=== PATIENT | female | born 1935 | race Caucasian/White ===

== ENCOUNTER 2018-01-28 08:28 | Inpatient (IN) ==
[2018-01-28] MEDS ORDERED: Ipratropium/Albuterol Neb 3 ML IH ONE (09:08)
[2018-01-28] MEDS ORDERED: Isovue-370 500 ML INFUS..BTL IV ONE (09:10)
--- NOTE | 2018-01-28 09:10 | Emergency Department Note ---
Disposition Clinical Impression: GI bleed, Episode of syncope, COPD exacerbation Disposition: Admitted As Inpatient Referrals: Colin Oden MD [Primary Care Provider] - Forms: ED Satisfaction Letter General Adult HPI - General Chief complaint: ED Syncope Stated complaint: syncope Time Seen by Provider: 01/28/18 08:42 Source: patient Limitations: no limitations - History of Present Illness Pain Scale: 0 - Related Data Home Medications Medication Instructions Recorded Confirmed Alendronate Sodium 70 mg PO QWEEK 12/10/14 12/10/14 Multivitamin/Iron/Folic Acid 1 each PO QPM 12/10/14 12/10/14 [Centrum Complete Multivit Tab] Allopurinol [Zyloprim 300 MG] 300 mg PO DAILY 01/28/18 Lisinopril [Zestril] 20 mg PO DAILY 01/28/18 Montelukast [Singulair] 10 mg PO DAILY 01/28/18 Tizanidine HCl 2 mg PO BID PRN 01/28/18 Tramadol HCl [Ultram] 50 mg PO BID PRN 01/28/18 Umeclidinium [place] [Incruse 1 puff IH DAILY 01/28/18 Ellipta] Previous Rx's Medication Instructions Recorded Aspirin 81 mg PO QAM tab.chew 12/11/14 Allergies Allergy/AdvReac Type Severity Reaction Status Date / Time ibuprofen [From Motrin] Allergy Rash Verified 01/28/18 08:40 Penicillins Allergy Rash Verified 01/28/18 08:40 Past Medical History - Past Medical History Medical history: Reports: COPD, hypertension, renal disease, other Surgical history: Reports: other (heart cath 6 years ago) Psychiatric history: Reports: no psych history STATISTICAL ENGINEER history: Reports: no STATISTICAL ENGINEER history - Social History Smoking Status: Current every day smoker Smokeless Tobacco Status: No Alcohol use: Reports: occasionally Drug use: Reports: none Physical Exam - General Limitations: no limitations General appearance: alert, in no apparent distress Course Vital Signs Temperature 98.4 F 01/28/18 08:40 Pulse Rate 129 01/28/18 08:40 Respiratory Rate 20 01/28/18 08:40 Blood Pressure 107/70 01/28/18 08:40 O2 Sat by Pulse Oximetry 92 01/28/18 08:40 Temperature 98.9 F 01/28/18 11:27 Pulse Rate 111 01/28/18 11:27 Respiratory Rate 24 11/04/18 11:27 Blood Pressure 135/75 01/28/18 11:27 O2 Sat by Pulse Oximetry 100 01/28/18 11:27 Oxygen Delivery Oxygen Delivery Nasal Cannula Medical Decision Making - Lab Data Result diagrams: 01/28/18 09:32 01/28/18 09:32 Lab Results 01/28/18 01/28/18 01/28/18 Range/Units 09:32 09:32 09:32 WBC 11.3 H (4.3-11.1) K/mcL RBC 3.28 L (3.82-4.97) M/mcL Hgb 10.9 L (11.5-15.4) g/dL Hct 33.3 L (35.3-44.9) % MCV 101.5 H (83.0-100.0) fL MCH 33.2 (28.0-33.3) pg MCHC 32.7 (31.6-35.5) g/dL RDW 14.3 (11.5-14.5) % Plt Count 171 (140-400) K/mcL MPV 11.1 (9.4-12.4) fL Immature Gran % 0.4 (0-4) % Seg Neutrophils % 82.9 % Lymphocytes % 12.0 % Monocytes % 4.3 % Eosinophils % 0.0 % Basophils % 0.4 % Neutrophils # 9.4 H (1.6-8.9) K/mcL Lymphocytes # 1.4 (0.6-4.6) K/mcL Monocytes # 0.5 (0.0-1.3) K/mcL Eosinophils # 0.0 (0.0-0.6) K/mcL Basophils # 0.0 (0.0-0.2) K/mcL PT (9.4-12.1) Seconds INR APTT (26.0-36.0) Seconds Sodium (136-145) mEq/L Potassium (3.5-5.1) mEq/L Chloride (98-107) mEq/L Carbon Dioxide (23-29) mEq/L BUN (8-23) mg/dL Creatinine (0.60-1.20) mg/dL Est GFR ( Amer) (> 60) Est GFR (Non-Af Amer) (> 60) BUN/Creatinine Ratio (6-26) Glucose (70-105) mg/dL Calculated Osmolality (280-300) Lactic Acid 1.4 (0.5-2.2) mmol/L Calcium (8.6-10.3) mg/dL Creatine Kinase (30-223) Units/L Troponin I (< 0.04) ng/mL Urine Color (Yellow) Urine Clarity (Clear) Urine pH (5.0-8.0) pH Units Ur Specific [place] (1.010-1.025) Urine Protein (Neg-Trace) mg/dL Urine Glucose (UA) (Normal) mg/dL Urine Ketones (Negative) mg/dL Urine Blood (Negative) Urine Nitrite (Negative) Urine Bilirubin (Negative) Urine Urobilinogen (Normal) mg/dL Ur Leukocyte Esterase (Negative) Urine Microscopic RBC (0-3) per hpf Urine Microscopic WBC (0-3) per hpf Ur Squamous Epith Cells (None-Few) per lpf Urine Bacteria (None-Few) per hpf Hyaline Casts (None-Few) per lpf Ur Culture Indicated? (NO) Stool Occult Bld Scrn (Negative) Blood Type O POSITIVE Antibody Screen NEGATIVE 01/28/18 01/28/18 01/28/18 Range/Units 09:32 09:32 10:07 WBC (4.3-11.1) K/mcL RBC (3.82-4.97) M/mcL Hgb (11.5-15.4) g/dL Hct (35.3-44.9) % MCV (83.0-100.0) fL MCH (28.0-33.3) pg MCHC (31.6-35.5) g/dL RDW (11.5-14.5) % Plt Count (140-400) K/mcL MPV (9.4-12.4) fL Immature Gran % (0-4) % Seg Neutrophils % % Lymphocytes % % Monocytes % % Eosinophils % % Basophils % % Neutrophils # (1.6-8.9) K/mcL Lymphocytes # (0.6-4.6) K/mcL Monocytes # (0.0-1.3) K/mcL Eosinophils # (0.0-0.6) K/mcL Basophils # (0.0-0.2) K/mcL PT 12.6 H (9.4-12.1) Seconds INR 1.1 APTT 28.6 (26.0-36.0) Seconds Sodium 140 (136-145) mEq/L Potassium 4.8 (3.5-5.1) mEq/L Chloride 107 (98-107) mEq/L Carbon Dioxide 26 (23-29) mEq/L BUN 58 H (8-23) mg/dL Creatinine 0.90 (0.60-1.20) mg/dL Est GFR ( Amer) > 60 (> 60) Est GFR (Non-Af Amer) 60 (> 60) BUN/Creatinine Ratio 64 H (6-26) Glucose 117 H (70-105) mg/dL Calculated Osmolality 307 H (280-300) Lactic Acid (0.5-2.2) mmol/L Calcium 9.7 (8.6-10.3) mg/dL Creatine Kinase 49 (30-223) Units/L Troponin I 0.03 (< 0.04) ng/mL Urine Color (Yellow) Urine Clarity (Clear) Urine pH (5.0-8.0) pH Units Ur Specific [place] (1.010-1.025) Urine Protein (Neg-Trace) mg/dL Urine Glucose (UA) (Normal) mg/dL Urine Ketones (Negative) mg/dL Urine Blood (Negative) Urine Nitrite (Negative) Urine Bilirubin (Negative) Urine Urobilinogen (Normal) mg/dL Ur Leukocyte Esterase (Negative) Urine Microscopic RBC (0-3) per hpf Urine Microscopic WBC (0-3) per hpf Ur Squamous Epith Cells (None-Few) per lpf Urine Bacteria (None-Few) per hpf Hyaline Casts (None-Few) per lpf Ur Culture Indicated? (NO) Stool Occult Bld Scrn Positive A (Negative) Blood Type Antibody Screen 01/28/18 Range/Units 10:45 WBC (4.3-11.1) K/mcL RBC (3.82-4.97) M/mcL Hgb (11.5-15.4) g/dL Hct (35.3-44.9) % MCV (83.0-100.0) fL MCH (28.0-33.3) pg MCHC (31.6-35.5) g/dL RDW (11.5-14.5) % Plt Count (140-400) K/mcL MPV (9.4-12.4) fL Immature Gran % (0-4) % Seg Neutrophils % % Lymphocytes % % Monocytes % % Eosinophils % % Basophils % % Neutrophils # (1.6-8.9) K/mcL Lymphocytes # (0.6-4.6) K/mcL Monocytes # (0.0-1.3) K/mcL Eosinophils # (0.0-0.6) K/mcL Basophils # (0.0-0.2) K/mcL PT (9.4-12.1) Seconds INR APTT (26.0-36.0) Seconds Sodium (136-145) mEq/L Potassium (3.5-5.1) mEq/L Chloride (98-107) mEq/L Carbon Dioxide (23-29) mEq/L BUN (8-23) mg/dL Creatinine (0.60-1.20) mg/dL Est GFR ( Amer) (> 60) Est GFR (Non-Af Amer) (> 60) BUN/Creatinine Ratio (6-26) Glucose (70-105) mg/dL Calculated Osmolality (280-300) Lactic Acid (0.5-2.2) mmol/L Calcium (8.6-10.3) mg/dL Creatine Kinase (30-223) Units/L Troponin I (< 0.04) ng/mL Urine Color Yellow (Yellow) Urine Clarity Clear (Clear) Urine pH 6.0 (5.0-8.0) pH Units Ur Specific [place] 1.018 (1.010-1.025) Urine Protein Negative (Neg-Trace) mg/dL Urine Glucose (UA) Normal (Normal) mg/dL Urine Ketones Negative (Negative) mg/dL Urine Blood Large H (Negative) Urine Nitrite Negative (Negative) Urine Bilirubin Negative (Negative) Urine Urobilinogen Normal (Normal) mg/dL Ur Leukocyte Esterase Trace H (Negative) Urine Microscopic RBC 0-3 (0-3) per hpf Urine Microscopic WBC 0-3 (0-3) per hpf Ur Squamous Epith Cells Many H (None-Few) per lpf Urine Bacteria Few (None-Few) per hpf Hyaline Casts None Seen (None-Few) per lpf Ur Culture Indicated? NO. A (NO) Stool Occult Bld Scrn (Negative) Blood Type Antibody Screen Critical Care Time Critical Care Time: Yes Total Critical Care Time: 30 Attestation: Critical care performed: Time is exclusive of separately billable procedures. Time includes: direct roberto carlos ent care, patient reassessment, coordination of patient care, interpretation of data (laboratory data, radiology data, and respiratory data), review of patient's medical records, medical consultation and documentation of patient care. Procedures included in critical care time: Procedures excluded from critical care time: Attestation Statement - Attestation Attestation: I examined this patient and my medical decision-making was reviewed with the Resident Physician. I agree with the documented findings, disposition and treatment plan as described except to the extent set forth below. Patient to the ED with a chief complaint of a syncopal episode last night. In her bedroom. Hit her head. She is also got some shortness of breath. In dark tarry stools. She is mildly tachypneic on exam with diffuse rhonchi. Plan. Cardiac workup. Head CT. Likely admission. Patient is Hemoccult positive. Hemoglobin 10. Patient is given IV Protonix. We have consulted with endoscopy. Patient is admitted.
[2018-01-28] MEDS ORDERED: methylPREDNISolone 125 MG/2 ML VIAL IVP ONE (09:13)
--- NOTE | 2018-01-28 09:20 | Emergency Department Note ---
Disposition Clinical Impression: COPD exacerbation GI bleed Qualifiers: GI bleed type/associated pathology: melena Qualified Code(s): K92.1 - Melena Episode of syncope Qualifiers: Syncope type: unspecified Qualified Code(s): R55 - Syncope and collapse Disposition: Admitted As Inpatient Condition: Fair Syncope HPI - General Chief Complaint: ED Syncope Stated Complaint: syncope Time Seen by Provider: 01/28/18 08:42 Source: patient Mode of arrival: private vehicle Limitations: no limitations Nursing Notes Reviewed: Yes Vital Signs Reviewed: Yes - History of Present Illness HPI Narrative: 82-year-old female history of hypertension, COPD who presents to the ER with complaint of syncope, shortness of breath and melena. Reports 5 days of cough. States that last night she used the bathroom and then whenever she got up and was walking back to her bed that she lost consciousness. She had no symptoms prior. She woke up on the ground and called down the hallway into her recliner. States she had a syncopal episode many many years ago. Family brought her in this morning. Denies prior history of CAD, DVT or PE. No oxygen dependency for her COPD. She does report dark stool starting last night. She is on 81 mg of aspirin daily. No prior history of colonoscopy. No other complaints. Pt Subjective Complaint: loss of consciousness Onset (ago): hour(s) Duration: other Prodromal Symptoms: none Witnessed: no Context: during exertion Injuries Sustained Associated with Event: none Current Symptoms: back to baseline History: previous syncopal episode Treatments prior to arrival: none - Related Data Home Medications Medication Instructions Recorded Confirmed Alendronate Sodium 70 mg PO QWEEK 12/10/14 12/10/14 Multivitamin/Iron/Folic Acid 1 each PO QPM 12/10/14 12/10/14 [Centrum Complete Multivit Tab] Allopurinol [Zyloprim 300 MG] 300 mg PO DAILY 01/28/18 Lisinopril [Zestril] 20 mg PO DAILY 01/28/18 Montelukast [Singulair] 10 mg PO DAILY 01/28/18 Tizanidine HCl 2 mg PO BID PRN 01/28/18 Tramadol HCl [Ultram] 50 mg PO BID PRN 01/28/18 Umeclidinium [place] [Incruse 1 puff IH DAILY 01/28/18 Ellipta] Previous Rx's Medication Instructions Recorded Aspirin 81 mg PO QAM tab.chew 12/11/14 Allergies Allergy/AdvReac Type Severity Reaction Status Date / Time ibuprofen [From Motrin] Allergy Rash Verified 01/28/18 08:40 Penicillins Allergy Rash Verified 01/28/18 08:40 All systems ED: reviewed and negative except as stated. Constitutional: Reports: fever (subjective) Cardiovascular: Denies: chest pain Respiratory: Reports: cough, dyspnea Gastrointestinal: Reports: melena. Denies: abdominal pain, nausea, vomiting, diarrhea Genitourinary: Denies: dysuria, hematuria Neurological: Denies: headache Past Medical History - Past Medical History Attestation: Yes The following information was validated with the patient. Source: patient, old records reviewed Medical history: Reports: COPD, hypertension, renal disease, other Surgical history: Reports: other (heart cath 6 years ago) Psychiatric history: Reports: no psych history FAMILY AND CONSUMER SCIENCES TEACHER history: Reports: no FAMILY AND CONSUMER SCIENCES TEACHER history - Social History Smoking Status: Current every day smoker Smokeless Tobacco Status: No Alcohol use: Reports: occasionally Drug use: Reports: none Physical Exam - General Limitations: no limitations General appearance: alert, in no apparent distress - Head Head exam: atraumatic, normocephalic, normal inspection - Eye Eye exam: Present: normal appearance, PERRL, EOMI - ENT ENT exam: normal exam - Neck Neck exam: Present: normal inspection - Chest Chest inspection: Present: normal inspection, symmetric chest wall rise - Respiratory Respiratory exam: Present: wheezes - Cardiovascular Cardiovascular exam: Present: normal rhythm, tachycardia, normal heart sounds - Abdominal Exam Abdominal exam: Present: soft, Non-Tender. Absent: tenderness, distention, rigidity - Extremities Exam Extremities exam: Present: normal inspection, full ROM - Expanded Upper Extremity Exam Shoulder exam: Present: normal inspection, full ROM Arm exam: Present: normal inspection, full ROM Elbow exam: Present: normal inspection, full ROM Forearm/Wrist exam: Present: normal inspection, full ROM Hand exam: Present: normal inspection, full ROM - Expanded Lower Extremity Exam Hip/Pelvis exam: Present: normal inspection, full ROM Upper leg exam: Present: normal inspection, full ROM Knee exam: Present: normal inspection, full ROM Lower leg exam: Present: normal inspection, full ROM Ankle exam: Present: normal inspection, full ROM Foot/toe exam: Present: normal inspection, full ROM Neurovascular/Tendon exam: Absent: motor deficit, sensory deficit - Neurological Exam Neurological exam: Present: alert, CN II-XII intact. Absent: motor sensory deficit - Expanded Neurological Exam Speech: Present: fluid speech Cranial nerves: EOM function (II, III, IV, ): Normal, facial sensation (V): Normal, spinal accessory function (XI): Normal, tongue deviation (XII): Normal Motor strength - LUE: 5/5 Motor strength - RUE: 5/5 Motor strength - LLE: 5/5 Motor strength - RLE: 5/5 Sensory exam upper extremity: light touch: Normal Sensory exam lower extremity: light touch: Normal Coma Scale Eye Opening: Spontaneous Coma Scale Motor Response: Obeys Commands Coma Scale Verbal Response: Oriented Coma Scale Total: 15 - Skin Skin exam: Present: warm, dry Course Course Narrative: Patient seen and examined. Vital signs reviewed. She is noted to be tachycardic here as well as tachypneic. Plan for EKG, chest x-ray, labs including troponin and stool occult blood. Also obtain CT imaging given her fall and unknown trauma as well as CT imaging for evaluation of pulmonary embolism in the setting of syncope and tachycardia. Patient ordered DuoNeb treatments and Solu-Medrol. - Reevaluation(s) Reevaluation #1: Vital signs have improved. Discussed workup with the patient. Agreeable with admission. - Consultations Consultation #1: I discussed this patient with the on-call endoscopist Dr. Streeter. Discussed the patient's history as well as vital signs, labs and current interventions. Bleeding felt to be from upper GI source given elevated BUN as well as melena. Reports that they can bowel prep her today and plan to scope tomorrow. Vital Signs Temperature 98.4 F 01/28/18 08:40 Pulse Rate 129 01/28/18 08:40 Respiratory Rate 20 01/28/18 08:40 Blood Pressure 107/70 01/28/18 08:40 O2 Sat by Pulse Oximetry 92 01/28/18 08:40 Temperature 98.9 F 01/28/18 11:27 Pulse Rate 111 01/28/18 11:27 Respiratory Rate 24 01/28/18 11:27 Blood Pressure 135/75 01/28/18 11:27 O2 Sat by Pulse Oximetry 100 01/28/18 11:27 Oxygen Delivery Oxygen Delivery Nasal Cannula Syncope - [facility] Narrative Medical decision making narrative: 82-year-old female presenting with shortness of breath, melena and a syncopal episode. She has diffuse wheezing on exam suggestive of COPD exacerbation. She was noted to be tachycardic at presentation which has improved with IV fluids and treatment of her COPD. Her blood pressure has been rather responsive to IV fluid resuscitation. CT imaging is grossly unremarkable for acute findings of intracranial or pulmonary pathology. She is noted to have anemia today without any recent comparison studies with Hemoccult-positive findings. Labs suggest upper GI bleed with elevated BUN. This case was discussed with the on-call endoscopist to plans for intervention tomorrow with upper and lower scopes. Patient given Protonix bolus and placed on drip. Patient is admitted to the hospital service for further management. - Lab Data Lab results reviewed: Yes I reviewed the patient's lab results. Result diagrams: 01/28/18 09:32 01/28/18 09:32 Lab Results 01/28/18 01/28/18 01/28/18 Range/Units 09:32 09:32 09:32 WBC 11.3 H (4.3-11.1) K/mcL RBC 3.28 L (3.82-4.97) M/mcL Hgb 10.9 L (11.5-15.4) g/dL Hct 33.3 L (35.3-44.9) % MCV 101.5 H (83.0-100.0) fL MCH 33.2 (28.0-33.3) pg MCHC 32.7 (31.6-35.5) g/dL RDW 14.3 (11.5-14.5) % Plt Count 171 (140-400) K/mcL MPV 11.1 (9.4-12.4) fL Immature Gran % 0.4 (0-4) % Seg Neutrophils % 82.9 % Lymphocytes % 12.0 % Monocytes % 4.3 % Eosinophils % 0.0 % Basophils % 0.4 % Neutrophils # 9.4 H (1.6-8.9) K/mcL Lymphocytes # 1.4 (0.6-4.6) K/mcL Monocytes # 0.5 (0.0-1.3) K/mcL Eosinophils # 0.0 (0.0-0.6) K/mcL Basophils # 0.0 (0.0-0.2) K/mcL PT (9.4-12.1) Seconds INR APTT (26.0-36.0) Seconds Sodium (136-145) mEq/L Potassium (3.5-5.1) mEq/L Chloride (98-107) mEq/L Carbon Dioxide (23-29) mEq/L BUN (8-23) mg/dL Creatinine (0.60-1.20) mg/dL Est GFR ( Amer) (> 60) Est GFR (Non-Af Amer) (> 60) BUN/Creatinine Ratio (6-26) Glucose (70-105) mg/dL Calculated Osmolality (280-300) Lactic Acid 1.4 (0.5-2.2) mmol/L Calcium (8.6-10.3) mg/dL Creatine Kinase (30-223) Units/L Troponin I (< 0.04) ng/mL Urine Color (Yellow) Urine Clarity (Clear) Urine pH (5.0-8.0) pH Units Ur Specific [place] (1.010-1.025) Urine Protein (Neg-Trace) mg/dL Urine Glucose (UA) (Normal) mg/dL Urine Ketones (Negative) mg/dL Urine Blood (Negative) Urine Nitrite (Negative) Urine Bilirubin (Negative) Urine Urobilinogen (Normal) mg/dL Ur Leukocyte Esterase (Negative) Urine Microscopic RBC (0-3) per hpf Urine Microscopic WBC (0-3) per hpf Ur Squamous Epith Cells (None-Few) per lpf Urine Bacteria (None-Few) per hpf Hyaline Casts (None-Few) per lpf Ur Culture Indicated? (NO) Stool Occult Bld Scrn (Negative) Blood Type O POSITIVE Antibody Screen NEGATIVE 01/28/18 01/28/18 01/28/18 Range/Units 09:32 09:32 10:07 WBC (4.3-11.1) K/mcL RBC (3.82-4.97) M/mcL Hgb (11.5-15.4) g/dL Hct (35.3-44.9) % MCV (83.0-100.0) fL MCH (28.0-33.3) pg MCHC (31.6-35.5) g/dL RDW (11.5-14.5) % Plt Count (140-400) K/mcL MPV (9.4-12.4) fL Immature Gran % (0-4) % Seg Neutrophils % % Lymphocytes % % Monocytes % % Eosinophils % % Basophils % % Neutrophils # (1.6-8.9) K/mcL Lymphocytes # (0.6-4.6) K/mcL Monocytes # (0.0-1.3) K/mcL Eosinophils # (0.0-0.6) K/mcL Basophils # (0.0-0.2) K/mcL PT 12.6 H (9.4-12.1) Seconds INR 1.1 APTT 28.6 (26.0-36.0) Seconds Sodium 140 (136-145) mEq/L Potassium 4.8 (3.5-5.1) mEq/L Chloride 107 (98-107) mEq/L Carbon Dioxide 26 (23-29) mEq/L BUN 58 H (8-23) mg/dL Creatinine 0.90 (0.60-1.20) mg/dL Est GFR ( Amer) > 60 (> 60) Est GFR (Non-Af Amer) 60 (> 60) BUN/Creatinine Ratio 64 H (6-26) Glucose 117 H (70-105) mg/dL Calculated Osmolality 307 H (280-300) Lactic Acid (0.5-2.2) mmol/L Calcium 9.7 (8.6-10.3) mg/dL Creatine Kinase 49 (30-223) Units/L Troponin I 0.03 (< 0.04) ng/mL Urine Color (Yellow) Urine Clarity (Clear) Urine pH (5.0-8.0) pH Units Ur Specific [place] (1.010-1.025) Urine Protein (Neg-Trace) mg/dL Urine Glucose (UA) (Normal) mg/dL Urine Ketones (Negative) mg/dL Urine Blood (Negative) Urine Nitrite (Negative) Urine Bilirubin (Negative) Urine Urobilinogen (Normal) mg/dL Ur Leukocyte Esterase (Negative) Urine Microscopic RBC (0-3) per hpf Urine Microscopic WBC (0-3) per hpf Ur Squamous Epith Cells (None-Few) per lpf Urine Bacteria (None-Few) per hpf Hyaline Casts (None-Few) per lpf Ur Culture Indicated? (NO) Stool Occult Bld Scrn Positive A (Negative) Blood Type Antibody Screen 01/28/18 Range/Units 10:45 WBC (4.3-11.1) K/mcL RBC (3.82-4.97) M/mcL Hgb (11.5-15.4) g/dL Hct (35.3-44.9) % MCV (83.0-100.0) fL MCH (28.0-33.3) pg MCHC (31.6-35.5) g/dL RDW (11.5-14.5) % Plt Count (140-400) K/mcL MPV (9.4-12.4) fL Immature Gran % (0-4) % Seg Neutrophils % % Lymphocytes % % Monocytes % % Eosinophils % % Basophils % % Neutrophils # (1.6-8.9) K/mcL Lymphocytes # (0.6-4.6) K/mcL Monocytes # (0.0-1.3) K/mcL Eosinophils # (0.0-0.6) K/mcL Basophils # (0.0-0.2) K/mcL PT (9.4-12.1) Seconds INR APTT (26.0-36.0) Seconds Sodium (136-145) mEq/L Potassium (3.5-5.1) mEq/L Chloride (98-107) mEq/L Carbon Dioxide (23-29) mEq/L BUN (8-23) mg/dL Creatinine (0.60-1.20) mg/dL Est GFR ( Amer) (> 60) Est GFR (Non-Af Amer) (> 60) BUN/Creatinine Ratio (6-26) Glucose (70-105) mg/dL Calculated Osmolality (280-300) Lactic Acid (0.5-2.2) mmol/L Calcium (8.6-10.3) mg/dL Creatine Kinase (30-223) Units/L Troponin I (< 0.04) ng/mL Urine Color Yellow (Yellow) Urine Clarity Clear (Clear) Urine pH 6.0 (5.0-8.0) pH Units Ur Specific [place] 1.018 (1.010-1.025) Urine Protein Negative (Neg-Trace) mg/dL Urine Glucose (UA) Normal (Normal) mg/dL Urine Ketones Negative (Negative) mg/dL Urine Blood Large H (Negative) Urine Nitrite Negative (Negative) Urine Bilirubin Negative (Negative) Urine Urobilinogen Normal (Normal) mg/dL Ur Leukocyte Esterase Trace H (Negative) Urine Microscopic RBC 0-3 (0-3) per hpf Urine Microscopic WBC 0-3 (0-3) per hpf Ur Squamous Epith Cells Many H (None-Few) per lpf Urine Bacteria Few (None-Few) per hpf Hyaline Casts None Seen (None-Few) per lpf Ur Culture Indicated? NO. A (NO) Stool Occult Bld Scrn (Negative) Blood Type Antibody Screen - Radiology Data Radiology results reviewed: Yes I reviewed the patient's radiology results. Chest X-Ray 01/28/18 08:44 IMPRESSION: No acute cardiopulmonary disease. D/ / Guillermo Guthrie MD / Guillermo Guthrie MD Interpreting Provider: Guillermo Guthrie MD Head CT 01/28/18 09:08 IMPRESSION: No acute intracranial abnormality. Paranasal sinus disease with fluid in left maxillary sinus. Correlation for acute sinusitis is recommended. D/ / Kamilah Molina Cha, MD / Kamilah Molina Cha, MD Interpreting Provider: Kamilah Molina Cha, MD Chest CTA 01/28/18 09:10 IMPRESSION: No acute pulmonary embolus is appreciated. 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 The lungs demonstrate bronchial wall thickening and mucous plugging. D/ / 01/28/2018 11:37:32 Aaron Vivas MD / ebeileen Interpreting Provider: Aaron Vivas MD Hip X-Ray 01/28/18 10:08 IMPRESSION: No acute osseous abnormality. D/ / Ankur Bass MD / Ankur Bass MD Interpreting Provider: Ankur Bass MD - EKG Data EKG attestation: Yes I reviewed and interpreted this EKG. EKG results narrative: EKG demonstrates sinus tachycardia with a rate of 115 with PACs. Left axis deviation. Normal intervals. Normal R-wave progression. No gross ST elevations or depressions. No acute ischemic findings. No significant changes from previous EKG dated 12/11/14. Ijeoma - Ijeoma Situation: Demographics, MOA Background: Presenting Complaint, Relevant PMH, Meds, & Allergies Assessment: Vital Signs, Course and respsone to treatment, Exam Concerns, Patient/Family Expectation, Pertinant Lab Results Recommendation: Barrier(s) to disposition, Recommendation based on pending studies, treatments, or consults Ijeoma Report Given to: Dr. Loly Raphael Repor Time: 12:19
[2018-01-28 09:56] LABS: Basophils % 0.4 %; Hematocrit 33.3 % (35.3-44.9); Hemoglobin 10.9 g/dL (11.5-15.4); Immature Granulocytes % 0.4 % (0-4); Lymphocytes # 1.4 K/mcL (0.6-4.6); Mean Corpuscular HGB Conc 32.7 g/dL (31.6-35.5); Mean Corpuscular Hemoglobin 33.2 pg (28.0-33.3); Mean Corpuscular Volume 101.5 fL (83.0-100.0); Mean Platelet Volume 11.1 fL (9.4-12.4); Monocytes # 0.5 K/mcL (0.0-1.3); Monocytes % 4.3 %; Neutrophils # 9.4 K/mcL (1.6-8.9); Platelet Count 171 K/mcL (140-400); Red Blood Count 3.28 M/mcL (3.82-4.97); Red Cell Distribution Width 14.3 % (11.5-14.5); Segmented Neutrophils % 82.9 %
[2018-01-28 10:04] LABS: INR 1.1; Prothrombin Time 12.6 Seconds (9.4-12.1)
[2018-01-28 10:06] LABS: Activated Partial Thrombo Time 28.6 Seconds (26.0-36.0)
[2018-01-28 10:08] LABS: BUN/Creatinine Ratio 64 (6-26); Blood Urea Nitrogen 58 mg/dL (8-23); Calcium 9.7 mg/dL (8.6-10.3); Carbon Dioxide 26 mEq/L (23-29); Chloride 107 mEq/L (98-107); Creatine Kinase 49 Units/L (30-223); Glucose 117 mg/dL (70-105); Osmolality,Calculated 307 (280-300); Potassium 4.8 mEq/L (3.5-5.1); Sodium 140 mEq/L (136-145); eGFR For Non-African Americans 60 (> 60)
[2018-01-28 10:09] LABS: Troponin I 0.03 ng/mL (< 0.04)
[2018-01-28] MEDS ORDERED: Pantoprazole 40 MG VIAL IVP ONE (10:42)
[2018-01-28] MEDS ORDERED: 0.9 % Sodium Chloride 1,000 ML IVC ONE (10:47)
[2018-01-28 10:55] LABS: Bilirubin,Urine Negative (Negative); Blood,Urine Large (Negative); Clarity,Urine Clear (Clear); Color,Urine Yellow (Yellow); Glucose,Urine (UA) Normal (Normal); Ketones,Urine Negative (Negative); Leukocyte Esterase,Urine Trace (Negative); Nitrite,Urine Negative (Negative); Protein,Urine Negative (Neg-Trace); Specific Gravity,Urine 1.018 (1.010-1.025); Urobilinogen,Urine Normal (Normal)
[2018-01-28 10:57] LABS: Bacteria,Urine Few per hpf (None-Few); Hyaline Casts,Urine None Seen per lpf (None-Few); Squamous Epithelial Cell,Urine Many per lpf (None-Few); WBC,Urine 0-3 per hpf (0-3)
[2018-01-28 11:09] LABS: RBC,Urine 0-3 per hpf (0-3)
[2018-01-28] MEDS ORDERED: Naloxone 0.4 MG/ML INJ IVP PRN (12:21)
--- NOTE | 2018-01-28 12:39 | Internal Med History&Physical ---
Date of Encounter: 01/28/18 Time of Encounter: 12:34 Internal Medicine - H&P: HPI Chief complaint: syncope Admitted From: Home Plans for Post Hospital Care: Home History of present illness: Ms. Vazquez is a 82 year old female with history of COPD not on home oxygen and hypertension presented to the emergency department after a syncopal episode. Per patient she was at her usual state of health but woke up in the middle of the night and use the bathroom and noticed that her stools are black which is something new for her. Blocked from the bathroom to her bedroom however she lost consciousness. She broke up on the ground and crawled down the hallway into her recliner and fell asleep. She cannot recall if she had any head trauma, denies chest pain, palpitations, diaphoresis, vision changes prior to the episode. She never had any symptoms similar to above previously. Denies history of CAD, blood clots or pulmonary embolism in the past. She is currently not on any anticoagulations however she does take aspirin 81 mg for many years. In addition to above she also complains of shortness of breath that started about 5 days ago and is associated with productive cough with minimal white sputum, denies hemoptysis. She has had COPD for many years and is a current every day smoker however she was never prescribed home oxygen nor CPAP. She reports she is compliant with her inhalers and has been using her rescue inhaler more often in the past 5 days without any relief. She is up-to-date with her vaccinations. Denies recent travel or sick contacts. I discussed CODE STATUS with the patient and she wishes to be DNR CCA DNI. she denies fever chills, N/V/D, hematochezia, hematemesis, leg swelling, calf te nderness. Past Med Surg Social Fam HX - Past Medical History Medical history: COPD, hypertension, renal disease, other Psychiatric history: no psych history - Past Surgical History Surgical History: other (heart cath 6 years ago) - Social History Smoking Status: Current every day smoker Smokeless Tobacco Status: No Alcohol use: occasionally Drug use: none - Family History Mother Living Status: Father Living Status: Internal Medicine - H&P: Meds RX: Multivitamin/Iron/Folic Acid [Centrum Complete Multivit Tab] 1 each PO QPM 12/10/14 [History] RX: Aspirin 81 mg PO QAM tab.chew 12/11/14 [Rx] Montelukast [Singulair] 10 mg PO DAILY 01/28/18 [History] RX: Allopurinol [Zyloprim 300 MG] 300 mg PO DAILY 01/28/18 [History] RX: Lisinopril [Zestril] 20 mg PO DAILY 01/28/18 [History] Tizanidine HCl 2 mg PO BID PRN 01/28/18 [History] Tramadol HCl [Ultram] 50 mg PO BID PRN 01/28/18 [History] Umeclidinium [place] [Incruse Ellipta] 1 puff IH DAILY 01/28/18 [History] Allergy/AdvReac Type Severity Reaction Status Date / Time ibuprofen [From Motrin] Allergy Rash Verified 01/28/18 08:40 Penicillins Allergy Rash Verified 01/28/18 08:40 All Systems PM: review of systems was performed and is negative for pertinent findings except as documented above in the HPI. - Constitutional Vitals: Temp Pulse Resp BP Pulse Ox 98.9 F 111 24 135/75 100 01/28/18 11:27 01/28/18 11:27 01/28/18 11:27 01/28/18 11:27 01/28/18 11:27 Exam: General: Patient is alert, oriented, in moderate distress, obese, speaks in 4 word sentences Head: atraumatic, normocephalic, Eye: normal appearance, PERRL, no scleral icterus, no conjunctival injection ENT: mucous membranes moist, normal external ear exam Neck: normal inspection, trachea midline, full ROM, no carotid bruits Chest: normal inspection, symmetric chest rise Respiratory: Tachypneic, diffuse wheezing in the anterior and posterior chest with crackles Cardiovascular: Distant heart sounds secondary to body habitus, tachycardic s1 and s2 No clicks, rubs, gallops, or murmors. Abdomen: Bowel sounds present normoactive x-4 quadrants. Abdomen is soft, nondistended. no Epigastric tenderness. No guarding or rebound. No organomegaly noted, obese musculoskeletal: Spontaneously moving all extremities. no edema, no calf tenderness Skin: warm, dry, intact. Left lower extremity has dark discoloration below kneechronic Neuro: Alert and oriented x4. Sensation light touch intact. Cranial nerves 2- 12 is intact. No focal deficit Psych: Patient's affect is normal Internal Med - H&P Results - Labs CBC & Chem 7: 01/28/18 14:38 01/28/18 09:32 Labs: Short CBC 01/28/18 Range/Units 09:32 WBC 11.3 H (4.3-11.1) K/mcL Hgb 10.9 L (11.5-15.4) g/dL Hct 33.3 L (35.3-44.9) % Plt Count 171 (140-400) K/mcL Neutrophils # 9.4 H (1.6-8.9) K/mcL BMP 01/28/18 09:32 Sodium 140 Potassium 4.8 Chloride 107 Carbon Dioxide 26 BUN 58 H Creatinine 0.90 Glucose 117 H Calcium 9.7 Cardiac Enzymes 01/28/18 Range/Units 09:32 Troponin I 0.03 (< 0.04) ng/mL Urine 01/28/18 Range/Units 10:45 Urine Color Yellow (Yellow) Urine Clarity Clear (Clear) Urine pH 6.0 (5.0-8.0) pH Units Ur Specific [place] 1.018 (1.010-1.025) Urine Protein Negative (Neg-Trace) mg/dL Urine Glucose (UA) Normal (Normal) mg/dL - EKG Data -: EKG Interpreted by Myself EKG shows normal: sinus rhythm (sinus tachycardia, left anterior fascicular block repolarization abn) - EKG Data Prior EKG available for review: yes When compared to previous EKG: there is no significant change - Impressions ITS Impressions Chest X-Ray 01/28/18 08:44 IMPRESSION: No acute cardiopulmonary disease. D/ / Guillermo Guthrie MD / Guillermo Guthrie MD Interpreting Provider: Guillermo Guthrie MD Head CT 01/28/18 09:08 IMPRESSION: No acute intracranial abnormality. Paranasal sinus disease with fluid in left maxillary sinus. Correlation for acute sinusitis is recommended. D/ / Kamilah Molina Cha, MD / Kamilah Molina Cha, MD Interpreting Provider: Kamilah Molina Cha, MD Chest CTA 01/28/18 09:10 IMPRESSION: No acute pulmonary embolus is appreciated. 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 The lungs demonstrate bronchial wall thickening and mucous plugging. D/ / 01/28/2018 11:37:32 Aaron Vivas MD / antonina Interpreting Provider: Aaron Vivas MD Hip X-Ray 01/28/18 10:08 IMPRESSION: No acute osseous abnormality. D/ / Ankur Bass MD / Ankur Bass MD Interpreting Provider: Ankur Bass MD - Assessment and plan (1) Syncope and collapse Current Visit: Yes Status: Acute Assessment and plan: Syncope, rule out arrhythmia vs vasal-vagal vs orthstatic telemetry monitoring -Check orthostatic pressure -BP monitoring -CBC, BMP am -2D ECHO evaluate LVD -Serial Troponin, CK, CKMB, EKG q 8H x3 -Supplemental oxygen -IVF NS - watch for overload -Continue home medication Ct head: IMPRESSION: No acute intracranial abnormality. Paranasal sinus disease with fluid in left maxillary sinus. Correlation for acute sinusitis is recommended. (2) Acute exacerbation of chronic obstructive pulmonary disease (COPD) Current Visit: Yes Status: Acute Assessment and plan: Solu-Medrol 125 was given in the ED will continue with 40 every 8 hours Duo nebs every 4 hours IV Levaquinwatch for QT prolongation Urine antigens, respiratory viral panel, sputum cultures BiPAP Keep O2 saturations above 90 Continuous pulse ox PFT on 06/27/17 Spirometry shows moderate airway obstructive pattern Following Bronchodilator, there is significant improvement in FVC by 14%. MVV is decreased. Lung Volumes are normal. Flow Volume Loop: Obstructive (3) Acute and chronic respiratory failure with hypoxia Current Visit: Yes Status: Acute Assessment and plan: Secondary to above Ruled out pulmonary embolism in the ED Management as per above CTA: IMPRESSION: No acute pulmonary embolus is appreciated. 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 The lungs demonstrate bronchial wall thickening and mucous plugging. (4) GI bleed Current Visit: Yes Status: Acute Assessment and plan: Multiple episodes of melena FOBT in the ED positive Dr. Streeter with surgeries on board for endoscopy in the morning Follow CBC every 8 hours and transfuse below 7 Type and screen stat Protonix drip Avoid antiplatelets, anticoagulations or NSAIDs IV fluidswatch for overload Qualifiers: GI bleed type/associated pathology: melena Qualified Code(s): K92.1 - Melena (5) Acute blood loss anemia Current Visit: Yes Status: Acute Assessment and plan: Secondary to above macrocytic anemia - will get B12 level baseline H/H from 2015- hemoglobin of 13.6 Management as per above (6) DVT prophylaxis Current Visit: Yes Status: Acute Assessment and plan: SCDs (7) Smoker Current Visit: Yes Status: Acute Assessment and plan: Was counseled Nicotine patch - Time Spent With Patient Total time spent is greater than 50% in coordination of care (as documented) at patient's floor/unit and/or counseling patient:
[2018-01-28 13:53] LABS: Magnesium 1.5 mg/dL (1.6-2.6); Phosphorous 2.5 mg/dL (2.7-4.5)
[2018-01-28 14:48] LABS: Basophils % 0.1 %; Hematocrit 29.6 % (35.3-44.9); Hemoglobin 9.6 g/dL (11.5-15.4); Immature Granulocytes % 0.3 % (0-4); Lymphocytes # 0.6 K/mcL (0.6-4.6); Lymphocytes % 4.5 %; Mean Corpuscular HGB Conc 32.4 g/dL (31.6-35.5); Mean Corpuscular Hemoglobin 32.7 pg (28.0-33.3); Mean Corpuscular Volume 100.7 fL (83.0-100.0); Monocytes # 0.1 K/mcL (0.0-1.3); Monocytes % 0.4 %; Neutrophils # 11.5 K/mcL (1.6-8.9); Platelet Count 169 K/mcL (140-400); Red Blood Count 2.94 M/mcL (3.82-4.97); Red Cell Distribution Width 14.3 % (11.5-14.5); Segmented Neutrophils % 94.7 %
[2018-01-28] MEDS: Ipratropium/Albuterol Neb 3 ML IH SCH ×3 (15:32→23:59)
--- NOTE | 2018-01-28 16:09 | General Surgery Consult Note ---
<Rylan Hameed S - Last Filed: 01/28/18 15:59> Date of Encounter: 01/28/18 Time of Encounter: 02:00 Assessment and Plan (1) GI bleed Current Visit: Yes Status: Acute Positive FOBT in ED Patient admits to melena over past 2 days Hgb 10.9 > 9.6 today Patient on IVF hydration Will start bowel prep today with miralax/gatorade and 20 mg dulcolax Plan for colonoscopy and EGD tomorrow NPO at midnight Qualifiers: GI bleed type/associated pathology: melena Qualified Code(s): K92.1 - Melena (2) COPD exacerbation Current Visit: Yes Status: Acute Management per primary team Continue duonebs, abx, solumedrol (3) Syncope and collapse Current Visit: Yes Status: Acute Management per primary team Orthostatic BPs, upper and lower scope tomorrow for GI bleed, Echo, EKGs History of Present Illness Consult date: 01/28/18 Reason for consult: other (GI bleed) Requesting physician: Taylor Stovall See History of present illness: 82 year old female with PMHx of COPD, HTN, renal disease presented to [facility] ED today with syncopal episode. Surgery consulted for suspected GI bleed. Patient had a positive FOBT in ED. Patient's BP was 107/70 and hemoglobin was 10.9. Patient was started on IV fluids. Patient seen and examined today. Patient states she noticed dark stool yesterday morning, and had another dark BM this AM. She states she has not seen any bright red blood with her BMs. She denies history of GI bleed in the past. She admits to some fatigue today. She denies CP, SOB, nausea, vomiting, abdominal pain, coughing blood, fevers/chills, night sweats, recent weight loss. She is not on any anticoagulation medication. Patient states she has never had a colonoscopy in the past. She admits to a tubal ligation many years ago but denies other surgeries. She is a current smoker. She denies alcohol and drug use. Past Med Surg Social Fam HX - Past Medical History Medical history: COPD, hypertension, renal disease, other Psychiatric history: no psych history - Past Surgical History Surgical History: other - Social History Smoking Status: Current every day smoker Packs per day: 0.5 Smokeless Tobacco Status: No Alcohol use: none Drug use: none - Family History Father Living Status: Mother Living Status: Medications and Allergies RX: Multivitamin/Iron/Folic Acid [Centrum Complete Multivit Tab] 1 each PO QPM 12/10/14 [History] RX: Aspirin 81 mg PO QAM tab.chew 12/11/14 [Rx] Montelukast [Singulair] 10 mg PO DAILY 01/28/18 [History] RX: Allopurinol [Zyloprim 300 MG] 300 mg PO DAILY 01/28/18 [History] RX: Lisinopril [Zestril] 20 mg PO DAILY 01/28/18 [History] Tizanidine HCl 2 mg PO BID PRN 01/28/18 [History] Tramadol HCl [Ultram] 50 mg PO BID PRN 01/28/18 [History] Umeclidinium [place] [Incruse Ellipta] 1 puff IH DAILY 01/28/18 [History] Allergy/AdvReac Type Severity Reaction Status Date / Time ibuprofen [From Motrin] Allergy Rash Verified 01/28/18 08:40 Penicillins Allergy Rash Verified 01/28/18 08:40 Review of Systems All systems PM: The remainder of the systems were reviewed and are negative General Surgery Exam Initial Vital Signs Temp Pulse Resp BP Pulse Ox 98.4 F 129 20 107/70 92 01/28/18 08:40 01/28/18 08:40 01/28/18 08:40 01/28/18 08:40 01/28/18 08:40 - General physical appearance well developed, well nourished, no distress - ENT normal mucosa - Respiratory normal expansion, normal respiratory effort - Cardiovascular Cardiovascular exam: Present: tachycardia - Expanded Cardiovascular Exam Peripheral pulses: 2+: Radial (L), Radial (R) - Abdomen Abdomen general surgery: Present: bowel sounds present, soft, non tender - Integumentary Integumentary general surgery: Present: warm and dry, no abnormal pigmentation - Psychiatric Psychiatric general surgery: Present: A&Ox3, appropriate Exam Initial Vital Signs Temp Pulse Resp BP Pulse Ox 98.4 F 129 20 107/70 92 01/28/18 08:40 01/28/18 08:40 01/28/18 08:40 01/28/18 08:40 01/28/18 08:40 Results - Labs 01/28/18 14:38 01/28/18 09:32 Abnormal lab results WBC 12.2 K/mcL (4.3-11.1) H 01/28/18 14:38 RBC 2.94 M/mcL (3.82-4.97) L 01/28/18 14:38 Hgb 9.6 g/dL (11.5-15.4) L 01/28/18 14:38 Hct 29.6 % (35.3-44.9) L 01/28/18 14:38 MCV 100.7 fL (83.0-100.0) H 01/28/18 14:38 Neutrophils # 11.5 K/mcL (1.6-8.9) H 01/28/18 14:38 PT 12.6 Seconds (9.4-12.1) H 01/28/18 09:32 BUN 58 mg/dL (8-23) H 01/28/18 09:32 BUN/Creatinine Ratio 64 (6-26) H 01/28/18 09:32 Glucose 117 mg/dL (70-105) H 01/28/18 09:32 Calculated Osmolality 307 (280-300) H 01/28/18 09:32 Phosphorus 2.5 mg/dL (2.7-4.5) L 01/28/18 13:13 Magnesium 1.5 mg/dL (1.6-2.6) L 01/28/18 13:13 Urine Blood Large (Negative) H 01/28/18 10:45 Ur Leukocyte Esterase Trace (Negative) H 01/28/18 10:45 Ur Squamous Epith Cells Many per lpf (None-Few) H 01/28/18 10:45 Ur Culture Indicated? NO. (NO) A 01/28/18 10:45 Stool Occult Bld Scrn Positive (Negative) A 01/28/18 10:07 Diabetes panel 01/28/18 Range/Units 09:32 Sodium 140 (136-145) mEq/L Potassium 4.8 (3.5-5.1) mEq/L Chloride 107 (98-107) mEq/L Carbon Dioxide 26 (23-29) mEq/L BUN 58 H (8-23) mg/dL Creatinine 0.90 (0.60-1.20) mg/dL Glucose 117 H (70-105) mg/dL Calcium 9.7 (8.6-10.3) mg/dL Calcium panel 01/28/18 01/28/18 Range/Units 09:32 13:13 Calcium 9.7 (8.6-10.3) mg/dL Phosphorus 2.5 L (2.7-4.5) mg/dL Pituitary panel 01/28/18 Range/Units 09:32 Sodium 140 (136-145) mEq/L Potassium 4.8 (3.5-5.1) mEq/L Chloride 107 (98-107) mEq/L Carbon Dioxide 26 (23-29) mEq/L BUN 58 H (8-23) mg/dL Creatinine 0.90 (0.60-1.20) mg/dL Glucose 117 H (70-105) mg/dL Calcium 9.7 (8.6-10.3) mg/dL Adrenal panel 01/28/18 Range/Units 09:32 Sodium 140 (136-145) mEq/L Potassium 4.8 (3.5-5.1) mEq/L Chloride 107 (98-107) mEq/L Carbon Dioxide 26 (23-29) mEq/L BUN 58 H (8-23) mg/dL Creatinine 0.90 (0.60-1.20) mg/dL Glucose 117 H (70-105) mg/dL Calcium 9.7 (8.6-10.3) mg/dL All other labs normal. Consult Discharge Plan - Plan Referrals: Colin Oden MD [Primary Care Provider] - <Sujit Streeter - Last Filed: 01/28/18 19:21> Date of Encounter: 01/28/18 Review of Systems All systems PM: The remainder of the systems were reviewed and are negative General Surgery Exam Initial Vital Signs Temp Pulse Resp BP Pulse Ox 98.4 F 129 20 107/70 92 01/28/18 08:40 01/28/18 08:40 01/28/18 08:40 01/28/18 08:40 01/28/18 08:40 Exam Initial Vital Signs Temp Pulse Resp BP Pulse Ox 98.4 F 129 20 107/70 92 01/28/18 08:40 01/28/18 08:40 01/28/18 08:40 01/28/18 08:40 01/28/18 08:40 Results - Labs 01/28/18 14:38 01/28/18 09:32 Abnormal lab results WBC 12.2 K/mcL (4.3-11.1) H 01/28/18 14:38 RBC 2.94 M/mcL (3.82-4.97) L 01/28/18 14:38 Hgb 9.6 g/dL (11.5-15.4) L 01/28/18 14:38 Hct 29.6 % (35.3-44.9) L 01/28/18 14:38 MCV 100.7 fL (83.0-100.0) H 01/28/18 14:38 Neutrophils # 11.5 K/mcL (1.6-8.9) H 01/28/18 14:38 PT 12.6 Seconds (9.4-12.1) H 01/28/18 09:32 BUN 58 mg/dL (8-23) H 01/28/18 09:32 BUN/Creatinine Ratio 64 (6-26) H 01/28/18 09:32 Glucose 117 mg/dL (70-105) H 01/28/18 09:32 Calculated Osmolality 307 (280-300) H 01/28/18 09:32 Phosphorus 2.5 mg/dL (2.7-4.5) L 01/28/18 13:13 Magnesium 1.5 mg/dL (1.6-2.6) L 01/28/18 13:13 Urine Blood Large (Negative) H 01/28/18 10:45 Ur Leukocyte Esterase Trace (Negative) H 01/28/18 10:45 Ur Squamous Epith Cells Many per lpf (None-Few) H 01/28/18 10:45 Ur Culture Indicated? NO. (NO) A 01/28/18 10:45 Stool Occult Bld Scrn Positive (Negative) A 01/28/18 10:07 Entero/Rhino (PCR) DETECTED (Not Detect) A 01/28/18 15:40 Diabetes panel 01/28/18 Range/Units 09:32 Sodium 140 (136-145) mEq/L Potassium 4.8 (3.5-5.1) mEq/L Chloride 107 (98-107) mEq/L Carbon Dioxide 26 (23-29) mEq/L BUN 58 H (8-23) mg/dL Creatinine 0.90 (0.60-1.20) mg/dL Glucose 117 H (70-105) mg/dL Calcium 9.7 (8.6-10.3) mg/dL Calcium panel 01/28/18 01/28/18 Range/Units 09:32 13:13 Calcium 9.7 (8.6-10.3) mg/dL Phosphorus 2.5 L (2.7-4.5) mg/dL Pituitary panel 01/28/18 Range/Units 09:32 Sodium 140 (136-145) mEq/L Potassium 4.8 (3.5-5.1) mEq/L Chloride 107 (98-107) mEq/L Carbon Dioxide 26 (23-29) mEq/L BUN 58 H (8-23) mg/dL Creatinine 0.90 (0.60-1.20) mg/dL Glucose 117 H (70-105) mg/dL Calcium 9.7 (8.6-10.3) mg/dL Adrenal panel 01/28/18 Range/Units 09:32 Sodium 140 (136-145) mEq/L Potassium 4.8 (3.5-5.1) mEq/L Chloride 107 (98-107) mEq/L Carbon Dioxide 26 (23-29) mEq/L BUN 58 H (8-23) mg/dL Creatinine 0.90 (0.60-1.20) mg/dL Glucose 117 H (70-105) mg/dL Calcium 9.7 (8.6-10.3) mg/dL All other labs normal. - Attending Attestation I examined this patient and my medical decision-making was reviewed with the Resident Physician. I agree with the documented findings, disposition and treatment plan as described except to the extent set forth below. The patient is seen and evaluated with resident. She presents with what appears to be melena. Her overall condition will require some resuscitation today as well as bowel preparation. We will plan EGD and colonoscopy tomorrow
[2018-01-28] MEDS: Pantoprazole 40 MG in 0.9 % Sodium Chloride Mini Bag 100 ML IVC SCH (16:22)
[2018-01-28] MEDS: 0.9 % Sodium Chloride 1,000 ML IVC SCH (16:22)
[2018-01-28] MEDS: Levofloxacin 750 MG/150 ML 750 MG/150 ML BAG IVPB SCH (16:22)
[2018-01-28] MEDS: Nicotine 21 MG PATCH.TD24 TD SCH (16:23)
[2018-01-28 16:48] LABS: Adenovirus Not Detected (Not Detect); Coronavirus 229E Not Detected (Not Detect); Coronavirus HKU1 Not Detected (Not Detect); Coronavirus NL63 Not Detected (Not Detect); Coronavirus OC43 Not Detected (Not Detect); Human Metapneumovirus Not Detected (Not Detect)
[2018-01-28 16:49] LABS: Bordetella Pertussis Not Detected (Not Detect); Chlamydophila pneumoniae Not Detected (Not Detect); Human Rhinovirus/Enterovirus DETECTED (Not Detect); Influenza A Subtype 2009 H1 Not Detected (Not Detect); Influenza A Untypeable Not Detected (Not Detect); Influenza B Not Detected (Not Detect); Mycoplasma pneumoniae Not Detected (Not Detect); Parainfluenza Virus 1 Not Detected (Not Detect); Parainfluenza Virus 2 Not Detected (Not Detect); Parainfluenza Virus 3 Not Detected (Not Detect); Parainfluenza Virus 4 Not Detected (Not Detect); Respiratory Syncytial Virus Not Detected (Not Detect)
[2018-01-28 17:15] LABS: Amphetamine Screen,Urine Negative ng/mL (Cutoff=1000); Barbiturate Screen,Urine Negative ng/mL (Cutoff=200); Benzodiazepines Screen,Urine Negative ng/mL (Cutoff=200); Cannabinoid Screen,Urine Negative ng/mL (Cutoff = 50); Cocaine Screen,Urine Negative ng/mL (Cutoff= 300); Opiate Screen,Urine Negative ng/mL (Cutoff=300); Phencyclidine Screen,Urine Negative ng/mL (Cutoff=25)
[2018-01-28] MEDS: Multivit/Ca/Min/Fe/FA 1 TAB TABLET PO SCH (18:26)
[2018-01-28] MEDS: MethylPREDNISolone 40 MG/ML VIAL IVP SCH (18:27)
[2018-01-28] MEDS ORDERED: Polyethylene Glycol 3350 255 GM POWDER PO ONE (18:30)
[2018-01-28] MEDS ORDERED: Dextrose Gel 15 GM/37.5 ML TUBE PO PRN ×2 (19:25)
[2018-01-28] MEDS ORDERED: D5% in Water 1,000 ML IVC PRN (19:25)
[2018-01-28] MEDS ORDERED: *HR* Dextrose 50 % in Water (Syg) 50 ML SYRINGE IVP PRN (19:25)
[2018-01-28 22:59] LABS: Hematocrit 27.6 % (35.3-44.9); Immature Granulocytes % 0.6 % (0-4); Lymphocytes # 0.8 K/mcL (0.6-4.6); Lymphocytes % 8.9 %; Mean Corpuscular HGB Conc 32.6 g/dL (31.6-35.5); Mean Corpuscular Hemoglobin 32.7 pg (28.0-33.3); Mean Corpuscular Volume 100.4 fL (83.0-100.0); Mean Platelet Volume 10.7 fL (9.4-12.4); Monocytes # 0.1 K/mcL (0.0-1.3); Monocytes % 0.5 %; Neutrophils # 8.5 K/mcL (1.6-8.9); Platelet Count 176 K/mcL (140-400); Red Blood Count 2.75 M/mcL (3.82-4.97); Red Cell Distribution Width 14.5 % (11.5-14.5)
[2018-01-29] MEDS ORDERED: Ondansetron ODT 4 MG TAB.RAPDIS SL ONE (00:36)
[2018-01-29] MEDS: Insulin LISPRO 300 UNITS/3 ML VIAL SQ SCH ×4 (00:55→18:20)
[2018-01-29] MEDS: Pantoprazole 40 MG in 0.9 % Sodium Chloride Mini Bag 100 ML IVC SCH ×3 (01:36→08:21)
[2018-01-29] MEDS: MethylPREDNISolone 40 MG/ML VIAL IVP SCH ×3 (01:37→18:00)
[2018-01-29] MEDS: Ipratropium/Albuterol Neb 3 ML IH SCH ×4 (04:07→15:17)
[2018-01-29 06:46] LABS: Hematocrit 26.8 % (35.3-44.9); Hemoglobin 8.7 g/dL (11.5-15.4); Immature Granulocytes % 0.4 % (0-4); Lymphocytes # 0.8 K/mcL (0.6-4.6); Lymphocytes % 8.6 %; Mean Corpuscular HGB Conc 32.5 g/dL (31.6-35.5); Mean Corpuscular Hemoglobin 32.7 pg (28.0-33.3); Mean Corpuscular Volume 100.8 fL (83.0-100.0); Mean Platelet Volume 10.8 fL (9.4-12.4); Monocytes # 0.1 K/mcL (0.0-1.3); Neutrophils # 8.2 K/mcL (1.6-8.9); Platelet Count 178 K/mcL (140-400); Red Blood Count 2.66 M/mcL (3.82-4.97); Red Cell Distribution Width 14.5 % (11.5-14.5)
[2018-01-29 07:03] LABS: Estimated Average Glucose 114 mg/dl; Hemoglobin A1C 5.6 %
[2018-01-29 07:08] LABS: BUN/Creatinine Ratio 38 (6-26); Blood Urea Nitrogen 36 mg/dL (8-23); Calcium 8.8 mg/dL (8.6-10.3); Carbon Dioxide 25 mEq/L (23-29); Chloride 110 mEq/L (98-107); Chol/HDL Ratio 2.7 (0-4.9); Cholesterol 115 mg/dL (< 200); Glucose 148 mg/dL (70-105); HDL Cholesterol 42 mg/dL (40-59); LDL Cholesterol,Calculated 57 mg/dL (0-99); Osmolality,Calculated 305 (280-300); Potassium 4.1 mEq/L (3.5-5.1); Sodium 142 mEq/L (136-145); Triglycerides 80 mg/dL (< 150); eGFR For Non-African Americans 56 (> 60)
[2018-01-29 07:20] LABS: Thyroid Stimulating Hormone 0.294 mcIU/mL (0.340-5.600)
[2018-01-29] MEDS: 0.9 % Sodium Chloride 1,000 ML IVC SCH (08:21)
[2018-01-29] MEDS: Nicotine 21 MG PATCH.TD24 TD SCH (08:22)
[2018-01-29] MEDS: Levofloxacin 750 MG/150 ML 750 MG/150 ML BAG IVPB SCH (08:22)
[2018-01-29] MEDS ORDERED: (Umeclidinium Bromide [Incruse Ellipta] 1 PUFF) IH SCH (09:00)
--- NOTE | 2018-01-29 11:43 | Palliative - Consult Note ---
Date of Encounter: 01/29/18 Time of Encounter: 11:00 - Assessment and Plan (1) Advance care planning Current Visit: Yes Status: Acute Assessment and plan: Patient lives alone - her granddaughter Chelsea Torres is her medical POA. Niece lives down the road from her. She only has one living child left that lives in [place]. Has no home care services and is independent in all ADL's. Ambulates with a cane. Has COPD, still smokes. She indicated that code status is DNR/DNI. She is for scopes today - Palliative will follow results. (2) Acute blood loss anemia Current Visit: Yes Status: Acute Assessment and plan: Awaiting EGD/Colonscopy this afternoon (3) COPD exacerbation Current Visit: Yes Status: Acute Palliative-CN HPI - Data of Consult Consult date: 01/29/18 Requesting Physician: Loly Sheppard MD Primary Care Provider: Colin Oden MD - Consult Narrative History of present illness: Ms. Vazquez is a 82 year old female who presented to the ER after a syncopal episode at home. She noticed that stools were black, and lost consciousness in the bathroom. After she came to, she crawled into recliner and slept for a while. She does not believe she hit her head. She also has had upper respiratory symptoms for about a week. She has some COPD, no home oxygen and is a smoker. Also history of HTN. Surgical consult was initiated upon admission and she is scheduled for EGD/Colonoscopy this afternoon. Hgb this am 8.7 down from 10.9 on admission. Upon my visit, she is up on side of bed. States extremely tired from bowel prep and no sleep. C/o some RUQ pain occasionally with deep palpation. No nausea/vomiting. She does have rhinitis and moist cough. + Rhinovirus on admission and on respiratory isolation. No family is present. She lives alone and granddaughter is DPOA. CC: Loly Sheppard MD - Time Spent with Patient Time: Total time spent is greater than 50% in coordination of care (as documented) at patient's floor/unit and/or counseling patient: Past Med Surg Social Fam HX - Past Medical History Medical history: COPD, hypertension, renal disease, other Psychiatric history: no psych history - Past Surgical History Surgical History: other (heart cath 6 years ago) - Social History Smoking Status: Current every day smoker Packs per day: 0.5 Smokeless Tobacco Status: No Alcohol use: occasionally Drug use: none - Family History Mother Living Status: Father Living Status: Medications and Allergies Multivitamin/Iron/Folic Acid [Centrum Complete Multivit Tab] 1 each PO QPM 12/10/14 [History] Aspirin 81 mg PO QAM tab.chew 12/11/14 [Rx] Allopurinol [Zyloprim 300 MG] 300 mg PO DAILY 01/28/18 [History] Lisinopril [Zestril] 20 mg PO DAILY 01/28/18 [History] Montelukast [Singulair] 10 mg PO DAILY 01/28/18 [History] Tizanidine HCl 2 mg PO BID PRN 01/28/18 [History] Tramadol HCl [Ultram] 50 mg PO BID PRN 01/28/18 [History] Umeclidinium [place] [Incruse Ellipta] 1 puff IH DAILY 01/28/18 [History] Allergy/AdvReac Type Severity Reaction Status Date / Time ibuprofen [From Motrin] Allergy Rash Verified 01/28/18 08:40 Penicillins Allergy Rash Verified 01/28/18 08:40 All systems: reviewed and no additional remarkable complaints except as stated - EENT Ears, nose, mouth, throat: nasal congestion, nasal discharge - Respiratory Respiratory: cough, chest congestion - Gastrointestinal Gastrointestinal: melena Palliative Care-Exam - Constitutional Vitals: Temp Pulse Resp BP Pulse Ox 99.0 F 100 20 130/85 97 01/29/18 10:41 01/29/18 10:41 01/29/18 10:41 01/29/18 10:41 01/29/18 10:41 General appearance: Present: no acute distress - Head Head Exam: Present: normal inspection, normocephalic - Respiratory Additional comments: Diminished breath sounds throughout. Prod moist cough with clear sputum - Cardiovascular Cardiovascular exam: Present: +S1, +S2 - GI/Abdominal Exam GI/Abdominal exam: Present: soft - Extremities Exam Extremities exam: Present: normal capillary refill, normal inspection - Neurological Exam Neurological exam: Present: alert, oriented X3, strengths equal and symetr throughout - Skin Skin exam: Present: dry, pallor, warm Internal Medicine - CN: Reslt - Labs CBC & Chem 7: 01/29/18 06:31 01/29/18 06:31 Labs: Short CBC 01/28/18 01/28/18 01/29/18 Range/Units 14:38 22:40 06:31 WBC 12.2 H 9.4 9.2 (4.3-11.1) K/mcL Hgb 9.6 L 9.0 L 8.7 L (11.5-15.4) g/dL Hct 29.6 L 27.6 L 26.8 L (35.3-44.9) % Plt Count 169 176 178 (140-400) K/mcL Neutrophils # 11.5 H 8.5 8.2 (1.6-8.9) K/mcL BMP 01/29/18 06:31 Sodium 142 Potassium 4.1 Chloride 110 H Carbon Dioxide 25 BUN 36 H Creatinine 0.96 Glucose 148 H Calcium 8.8 Cardiac Enzymes 01/28/18 Range/Units 14:38 Troponin I < 0.03 (< 0.04) ng/mL - ABG Interpretation ABG results: PT/INR, D-dimer PT 12.6 Seconds (9.4-12.1) H 01/28/18 09:32 - Impressions Impressions Head CT 01/28/18 09:08 IMPRESSION: No acute intracranial abnormality. Paranasal sinus disease with fluid in left maxillary sinus. Correlation for acute sinusitis is recommended. D/ / Kamilah Molina Cha, MD / Kamilah Molina Cha, MD Interpreting Provider: Kamilah Molina Cha, MD Chest CTA 01/28/18 09:10 IMPRESSION: No acute pulmonary embolus is appreciated. 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 The lungs demonstrate bronchial wall thickening and mucous plugging. D/ / 01/28/2018 11:37:32 Aaron Vivas MD / antonina Interpreting Provider: Aaron Vivas MD Echocardiogram 01/29/18 12:27 Impressions: LVEF 65%. Mild left ventricular diastolic dysfunction. Normal right ventricular structure and function. Mild mitral regurgitation. Moderate tricuspid regurgitation. Mild pulmonary hypertension. Left Ventricular Wall Motion: Rest Echo Findings All wall segments showed normal motion. Findings: Study Quality * Technically adequate exam. ECG Findings * Normal sinus rhythm. Left Ventricle * LVEF 65%. * Mild left ventricular diastolic dysfunction. * Normal LV chamber size and wall thickness. Right Ventricle * Normal right ventricular structure and function. Left Atrium * Moderately dilated left atrium. Right Atrium * Mildly dilated right atrium. Aortic Valve * No aortic regurgitation. * Aortic valve not well visualized. * No aortic stenosis. Mitral Valve * Normal mitral valve structure. * No mitral stenosis. * Mild mitral regurgitation. Tricuspid Valve * Moderate tricuspid regurgitation. * Tricuspid valve not well visualized. * Estimated RA pressure is 3 mmHg. * Estimated RVSP is 41 mmHg. * Mild pulmonary hypertension. Pulmonic Valve * Pulmonic valve is not well visualized. * No pulmonic stenosis. * No pulmonic regurgitation. Pulmonary Artery * Pulmonary artery not well visualized. Aorta * Normally sized aortic root. Pericardium * There is no pericardial effusion present. Interatrial Septum * No evidence of PFO by color Doppler. IVC * Normal IVC dimensions and inspiratory collapse. Consult Discharge Plan - Plan Referrals: Colni Oden MD [Primary Care Provider] - Palliative Quality Palliative Quality: Screen for Code Status: Yes, Screen for Goals of Care: Yes, Screen for Pain: Yes, If Pain Regimen Started, Initiate Bowel Regimen: NA (bowel prep for scope), Screen for Nausea/Vomitting: Yes Code Status: 01/28/18 12:21 Resuscitation Status: Active [RES] Routine Comment: Resuscitation Status: [id number]
--- NOTE | 2018-01-29 14:10 | Electrocardiograph Report ---
[place] [id number] Test Date: 2018-01-28 Pat Name: Gina Vazquez Department: EXAM15 Room: 3A22 Gender: F Eyeglass Frame Truer: : 1935 Requested By: Frank Magana Order Number: [id number] Reading MD: Marii England Measurements Intervals [place] Rate: 115 P: 57 TN: 155 QRS: -66 QRSD: 99 T: 84 QT: 314 QTc: 435 Interpretive Statements Sinus tachycardia Premature atrial contraction Left anterior fascicular block Abnormal R-wave progression Electronically Signed On 01-29-2018 14:08:17 EST by Mairi England
--- NOTE | 2018-01-29 14:57 | Event Note ---
<Malgorzata Mc - Last Filed: 01/29/18 14:54> Date of Encounter: 01/29/18 Time of Encounter: 14:54 Reviewed unforeseen delay with Ms. Vazquez. PResented options of completing endoscopy today in aprox 4-5 hours vs CLD and endoscopies in the am. She has elected to proceed tomorrow. May have CLD, no red dye, and mag citrate tonight. NPO after 0001 <Sujit Streeter - Last Filed: 01/30/18 10:49> Date of Encounter: 01/30/18 The patient is seen and evaluated. Due to operating room delay, the endoscopy would be delayed for 5 hours. I offered to stay and do her case late in the evening or to the case tomorrow. She is elected to do this tomorrow. I think this is completely reasonable. Sujit Streeter MD FACS
--- NOTE | 2018-01-29 17:21 | Internal Med Progress Note ---
Hospitalist Progress Note - Encounter Date of Encounter: 01/29/18 Time of Encounter: 17:20 - Subjective Interval History: Pt denies chest pain and SOB improving. She denies abdominal pain. She denies fever, chills, N/V or diarrhea. - Exam Vitals: Temp Pulse Resp BP Pulse Ox 98.5 F 95 19 133/82 99 01/29/18 14:44 01/29/18 14:44 01/29/18 15:18 01/29/18 14:44 01/29/18 15:18 Exam: Exam: General: Patient is alert, oriented, in moderate distress, obese, speaks in 4 word sentences Head: atraumatic, normocephalic, Eye: normal appearance, PERRL, no scleral icterus, no conjunctival injection ENT: mucous membranes moist, normal external ear exam Neck: normal inspection, trachea midline, full ROM, no carotid bruits Chest: normal inspection, symmetric chest rise Respiratory: Tachypneic, diffuse wheezing in the anterior and posterior chest with crackles Cardiovascular: Distant heart sounds secondary to body habitus, tachycardic s1 and s2 No clicks, rubs, gallops, or murmors. Abdomen: Bowel sounds present normoactive x-4 quadrants. Abdomen is soft, nondistended. no Epigastric tenderness. No guarding or rebound. No organomegaly noted, obese musculoskeletal: Spontaneously moving all extremities. no edema, no calf tenderness Skin: warm, dry, intact. Left lower extremity has dark discoloration below kneechronic Neuro: Alert and oriented x4. Sensation light touch intact. Cranial nerves 2- 12 is intact. No focal deficit Psych: Patient's affect is normal - Assessment and Plan (1) GI bleed Current Visit: Yes Status: Acute Assessment and Plan: Multiple episodes of melena FOBT in the ED positive Dr. Streeter with surgeries on board for endoscopy 01/29/2018 Follow CBC every 8 hours and transfuse below 7 Type and screen stat Protonix drip Avoid antiplatelets, anticoagulations or NSAIDs IV fluidswatch for overload (2) Syncope and collapse Current Visit: Yes Status: Acute Assessment and Plan: Pt hypotensive on admission. Will check orthostatic vitals if not already done (3) Acute and chronic respiratory failure with hypoxia Current Visit: Yes Status: Acute Assessment and Plan: Secondary to above Ruled out pulmonary embolism in the ED Management as per above CTA: IMPRESSION: No acute pulmonary embolus is appreciated. 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 The lungs demonstrate bronchial wall thickening and mucous plugging. (4) Acute exacerbation of chronic obstructive pulmonary disease (COPD) Current Visit: Yes Status: Acute Assessment and Plan: Solu-Medrol 125 was given in the ED will continue with 40 every 8 hours Duo nebs every 4 hours IV Levaquinwatch for QT prolongation Urine antigens, respiratory viral panel, sputum cultures BiPAP Keep O2 saturations above 90 Continuous pulse ox PFT on 06/27/17 Spirometry shows moderate airway obstructive pattern Following Bronchodilator, there is significant improvement in FVC by 14%. MVV is decreased. Lung Volumes are normal. Flow Volume Loop: Obstructive (5) Acute blood loss anemia Current Visit: Yes Status: Acute Assessment and Plan: Secondary GI bleed Macrocytic anemia - vitamin B12 level 391. Baseline H/H from 2014- hemoglobin of 13.6 Management as per above (6) Smoker Current Visit: Yes Status: Acute Assessment and Plan: Was counseled on cessation Nicotine patch DVT Prophylaxis: SCDs - Summary of Assessment and Plan Summary of Assessment and Plan: History of present illness: Dr. hSeppard Ms. Vazquez is a 82 year old female with history of COPD not on home oxygen and hypertension presented to the emergency department after a syncopal episode. Per patient she was at her usual state of health but woke up in the middle of the night and use the bathroom and noticed that her stools are black which is something new for her. Blocked from the bathroom to her bedroom however she lost consciousness. She broke up on the ground and crawled down the hallway into her recliner and fell asleep. She cannot recall if she had any head trauma, denies chest pain, palpitations, diaphoresis, vision changes prior to the episode. She never had any symptoms similar to above previously. Denies history of CAD, blood clots or pulmonary embolism in the past. She is currently not on any anticoagulations however she does take aspirin 81 mg for many years. In addition to above she also complains of shortness of breath that started about 5 days ago and is associated with productive cough with minimal white sputum, denies hemoptysis. She has had COPD for many years and is a current every day smoker however she was never prescribed home oxygen nor CPAP. She reports she is compliant with her inhalers and has been using her rescue inhaler more often in the past 5 days without any relief. She is up-to-date with her vaccinations. Denies recent travel or sick contacts. I discussed CODE STATUS with the patient and she wishes to be DNR CCA DNI. she denies fever chills, N/V/D, hematochezia, hematemesis, leg swelling, calf tenderness. - Time Spent with Patient Total time spent is greater than 50% in coordination of care (as documented) at patient's floor/unit and/or counseling patient: less than 15 minutes Plan of Care Discussed with: patient Internal Medicine: Result - Labs CBC & Chem 7: 01/29/18 06:31 01/29/18 06:31 Labs: Short CBC 01/28/18 01/29/18 Range/Units 22:40 06:31 WBC 9.4 9.2 (4.3-11.1) K/mcL Hgb 9.0 L 8.7 L (11.5-15.4) g/dL Hct 27.6 L 26.8 L (35.3-44.9) % Plt Count 176 178 (140-400) K/mcL Neutrophils # 8.5 8.2 (1.6-8.9) K/mcL BMP 01/29/18 06:31 Sodium 142 Potassium 4.1 Chloride 110 H Carbon Dioxide 25 BUN 36 H Creatinine 0.96 Glucose 148 H Calcium 8.8 - ABG Interpretation ABG results: PT/INR, D-dimer PT 12.6 Seconds (9.4-12.1) H 01/28/18 09:32 - Impressions Impressions Echocardiogram 01/29/18 12:27 Impressions: LVEF 65%. Mild left ventricular diastolic dysfunction. Normal right ventricular structure and function. Mild mitral regurgitation. Moderate tricuspid regurgitation. Mild pulmonary hypertension. Left Ventricular Wall Motion: Rest Echo Findings All wall segments showed normal motion. Findings: Study Quality * Technically adequate exam. ECG Findings * Normal sinus rhythm. Left Ventricle * LVEF 65%. * Mild left ventricular diastolic dysfunction. * Normal LV chamber size and wall thickness. Right Ventricle * Normal right ventricular structure and function. Left Atrium * Moderately dilated left atrium. Right Atrium * Mildly dilated right atrium. Aortic Valve * No aortic regurgitation. * Aortic valve not well visualized. * No aortic stenosis. Mitral Valve * Normal mitral valve structure. * No mitral stenosis. * Mild mitral regurgitation. Tricuspid Valve * Moderate tricuspid regurgitation. * Tricuspid valve not well visualized. * Estimated RA pressure is 3 mmHg. * Estimated RVSP is 41 mmHg. * Mild pulmonary hypertension. Pulmonic Valve * Pulmonic valve is not well visualized. * No pulmonic stenosis. * No pulmonic regurgitation. Pulmonary Artery * Pulmonary artery not well visualized. Aorta * Normally sized aortic root. Pericardium * There is no pericardial effusion present. Interatrial Septum * No evidence of PFO by color Doppler. IVC * Normal IVC dimensions and inspiratory collapse. Consult Discharge Plan - Plan Referrals: Colin Oden MD [Primary Care Provider] - (1) GI bleed Qualifiers: GI bleed type/associated pathology: sherrie Qualified Code(s): K92.1 - Sherrie
[2018-01-29] MEDS: Multivit/Ca/Min/Fe/FA 1 TAB TABLET PO SCH (18:00)
[2018-01-30] MEDS: Insulin LISPRO 300 UNITS/3 ML VIAL SQ SCH ×3 (02:22→13:53)
[2018-01-30] MEDS: Pantoprazole 40 MG in 0.9 % Sodium Chloride Mini Bag 100 ML IVC SCH ×4 (02:24→07:47)
--- NOTE | 2018-01-30 03:22 | Anesthesia Evaluation PreOp ---
<MikySandra puga - Last Filed: 01/30/18 03:20> Date of Encounter: 01/30/18 - Past History Planned Operation: EGD/colonosopy Cardiac History: HTN, Other (syncope this admit; TTE yesterday unremarkable) Pulmonary History: Smoker, COPD (exacerbation this admission) CLINICAL REVIEW SPECIALIST History: Denies Any Significant HX Other Medical History: Renal (ckd), Bleeding (GI bleed with melena, anemia) Alcohol Use: occasionally Drug use: none Medications and Allergies Multivitamin/Iron/Folic Acid [Centrum Complete Multivit Tab] 1 each PO QPM 12/10/14 [History] Aspirin 81 mg PO QAM tab.chew 12/11/14 [Rx] Allopurinol [Zyloprim 300 MG] 300 mg PO DAILY 01/28/18 [History] Lisinopril [Zestril] 20 mg PO DAILY 01/28/18 [History] Montelukast [Singulair] 10 mg PO DAILY 01/28/18 [History] Tizanidine HCl 2 mg PO BID PRN 01/28/18 [History] Tramadol HCl [Ultram] 50 mg PO BID PRN 01/28/18 [History] Umeclidinium [place] [Incruse Ellipta] 1 puff IH DAILY 01/28/18 [History] Allergy/AdvReac Type Severity Reaction Status Date / Time ibuprofen [From Motrin] Allergy Rash Verified 01/28/18 08:40 Penicillins Allergy Rash Verified 01/28/18 08:40 - Meds/Allergy Pre-op Review Medications Reviewed: Yes Allergies Reviewed: Yes Beta Blockers on Current Med List: No Anesthesia Results - Labs 01/29/18 06:31 01/29/18 06:31 - Imaging EKG: report reviewed, image reviewed (Sinus tachycardia Premature atrial contraction Left anterior fascicular block Abnormal R-wave progression) Additional studies: 01-29-18 TTE: Impressions: LVEF 65%. Mild left ventricular diastolic dysfunction. Normal right ventricular structure and function. Mild mitral regurgitation. Moderate tricuspid regurgitation. Mild pulmonary hypertension. Anesthesia Exam Last Vital Signs Temp 98.9 F 01/29/18 21:00 Pulse 81 01/29/18 21:00 Resp 16 01/29/18 21:00 BP 108/66 01/29/18 21:00 Pulse Ox 97 01/29/18 21:00 Weight: 107 kg Anesthesia Assess/Plan ASA Score: 3 Anesthetic Plan: MAC Monitoring Plan: Standard Monitors Recovery Plan: PACU <Janeth Contreras - Last Filed: 01/30/18 12:33> Date of Encounter: 01/30/18 Time of Encounter: 12:22 - Past History Other Medical History: Other (anemia) Anesthesia History: Past Anesthesia (no previous anesthetic, no known family hx of anes complications) Anesthesia Results - Labs 01/30/18 06:02 01/30/18 06:02 Anesthesia Exam NPO (# of Hours): >8 - HEENT Pupil (Motor): Pupils equal, EOMI Mallampati: II Teeth: Edentulous Oral Opening: Greater than 3 - CLINICAL REVIEW SPECIALIST LOC: Oriented CLINICAL REVIEW SPECIALIST Motor: Normal RUE, Normal LUE, Normal RLE, Normal LLE, Normal Face CLINICAL REVIEW SPECIALIST Sensory: Normal: RUE, LUE, RLE, LLE, Face - Cardiac Rhythm: Regular - Pulmonary Breath Sounds: bilateral Clear Respiratory Effort: Symmetrical Anesthesia Assess/Plan Level of consciousness: Cooperative, Oriented Anesthetic Plan: General
[2018-01-30] MEDS ORDERED: 0.9 % Sodium Chloride 1,000 ML ONE (03:25)
[2018-01-30] MEDS: Ipratropium/Albuterol Neb 3 ML IH SCH ×4 (05:25→21:56)
[2018-01-30] MEDS: MethylPREDNISolone 40 MG/ML VIAL IVP SCH ×2 (05:51→17:16)
[2018-01-30 06:23] LABS: Hematocrit 23.6 % (35.3-44.9); Hemoglobin 7.6 g/dL (11.5-15.4); Lymphocytes # 0.8 K/mcL (0.6-4.6); Lymphocytes % 9.1 %; Mean Corpuscular HGB Conc 32.2 g/dL (31.6-35.5); Mean Corpuscular Volume 102.6 fL (83.0-100.0); Mean Platelet Volume 11.1 fL (9.4-12.4); Monocytes # 0.4 K/mcL (0.0-1.3); Monocytes % 4.5 %; Neutrophils # 7.8 K/mcL (1.6-8.9); Platelet Count 165 K/mcL (140-400); Red Cell Distribution Width 14.7 % (11.5-14.5); Segmented Neutrophils % 85.4 %
[2018-01-30 06:47] LABS: BUN/Creatinine Ratio 32 (6-26); Blood Urea Nitrogen 27 mg/dL (8-23); Calcium 8.3 mg/dL (8.6-10.3); Carbon Dioxide 26 mEq/L (23-29); Chloride 113 mEq/L (98-107); Glucose 127 mg/dL (70-105); Osmolality,Calculated 307 (280-300); Potassium 4.5 mEq/L (3.5-5.1); Sodium 145 mEq/L (136-145); eGFR For Non-African Americans > 60 (> 60)
[2018-01-30] MEDS: Nicotine 21 MG PATCH.TD24 TD SCH (08:28)
--- NOTE | 2018-01-30 10:59 | Internal Med Progress Note ---
Hospitalist Progress Note - Encounter Date of Encounter: 01/30/18 Time of Encounter: 17:49 - Subjective Interval History: Patient getting ready for EGD/Colonoscopy. Denies syncopal episodes. - Exam Vitals: Temp Pulse Resp BP Pulse Ox 98.3 F 100 18 126/76 97 01/30/18 10:36 01/30/18 10:36 01/30/18 10:36 01/30/18 10:36 01/30/18 10:36 Exam: Exam: General: Patient is alert, oriented, in moderate distress, obese, speaks in 4 word sentences Head: atraumatic, normocephalic, Eye: normal appearance, PERRL, no scleral icterus, no conjunctival injection ENT: mucous membranes moist, normal external ear exam Neck: normal inspection, trachea midline, full ROM, no carotid bruits Chest: normal inspection, symmetric chest rise Respiratory: Tachypneic, diffuse wheezing in the anterior and posterior chest with crackles Cardiovascular: Distant heart sounds secondary to body habitus, tachycardic s1 and s2 No clicks, rubs, gallops, or murmors. Abdomen: Bowel sounds present normoactive x-4 quadrants. Abdomen is soft, nondistended. no Epigastric tenderness. No guarding or rebound. No organomegaly noted, obese musculoskeletal: Spontaneously moving all extremities. no edema, no calf tenderness Skin: warm, dry, intact. Left lower extremity has dark discoloration below kneechronic Neuro: Alert and oriented x4. Sensation light touch intact. Cranial nerves 2- 12 is intact. No focal deficit Psych: Patient's affect is normal - Assessment and Plan (1) GI bleed Current Visit: Yes Status: Acute Assessment and Plan: Multiple episodes of melena FOBT in the ED positive Type and screen stat Protonix drip Avoid antiplatelets, anticoagulations or NSAIDs Will receive 2 units PRBC for anemia today given steady drop of H&H EGD and Colonoscopy today (2) Syncope and collapse Current Visit: Yes Status: Acute Assessment and Plan: Pt hypotensive on admission. Will check orthostatic vitals if not already done Possibly due to acute anemia. Hgb now 7.6, was 10.9 on admission. Will transfuse and monitor. (3) Acute exacerbation of chronic obstructive pulmonary disease (COPD) Current Visit: Yes Status: Acute Assessment and Plan: Solu-Medrol 125 was given in the ED will continue with 40 every 8 hours Duo nebs every 4 hours IV Levaquinwatch for QT prolongation Urine antigens, respiratory viral panel, sputum cultures BiPAP Keep O2 saturations above 90 Continuous pulse ox PFT on 06/27/17 Spirometry shows moderate airway obstructive pattern Following Bronchodilator, there is significant improvement in FVC by 14%. MVV is decreased. Lung Volumes are normal. Flow Volume Loop: Obstructive (4) Acute and chronic respiratory failure with hypoxia Current Visit: Yes Status: Acute Assessment and Plan: Secondary to above Ruled out pulmonary embolism in the ED Management as per above CTA: IMPRESSION: No acute pulmonary embolus is appreciated. 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 The lungs demonstrate bronchial wall thickening and mucous plugging. (5) Acute blood loss anemia Current Visit: Yes Status: Acute Assessment and Plan: Secondary GI bleed Macrocytic anemia - vitamin B12 level 391. Baseline H/H from 2014- hemoglobin of 13.6 Management as per above See above, h/h steady declining to 7.6, will give 2 units PRBC and monitor H&H (6) Smoker Current Visit: Yes Status: Acute Assessment and Plan: Was counseled on cessation Nicotine patch - Time Spent with Patient Total time spent is greater than 50% in coordination of care (as documented) at patient's floor/unit and/or counseling patient: Internal Medicine: Result - Labs CBC & Chem 7: 01/30/18 06:02 01/30/18 06:02 Labs: Short CBC 01/30/18 Range/Units 06:02 WBC 9.1 (4.3-11.1) K/mcL Hgb 7.6 L (11.5-15.4) g/dL Hct 23.6 L (35.3-44.9) % Plt Count 165 (140-400) K/mcL Neutrophils # 7.8 (1.6-8.9) K/mcL BMP 01/30/18 06:02 Sodium 145 Potassium 4.5 Chloride 113 H Carbon Dioxide 26 BUN 27 H Creatinine 0.85 Glucose 127 H Calcium 8.3 L - ABG Interpretation ABG results: PT/INR, D-dimer PT 12.6 Seconds (9.4-12.1) H 01/28/18 09:32 Consult Discharge Plan - Plan Referrals: Colin Oden MD [Primary Care Provider] - (1) GI bleed Qualifiers: GI bleed type/associated pathology: sherrie Qualified Code(s): K92.1 - Sherrie
[2018-01-30] MEDS ORDERED: *HR* Midazolam HCl 5 MG/5 ML VIAL IVP ONE (11:44)
[2018-01-30] MEDS ORDERED: *HR* FentaNYL (PF) 100 MCG/2 ML VIAL ONE (11:45)
[2018-01-30] MEDS ORDERED: Simethicone 40 MG/0.6 ML MLS IR ONE (12:13)
[2018-01-30] MEDS ORDERED: Tetracaine/Benzocaine/Butamben 1 SPRAY AEROSOL MM ONE (12:13)
[2018-01-30] MEDS ORDERED: Propofol 500 MG/50 ML INFUS..BTL ONE (12:21)
[2018-01-30] MEDS ORDERED: Lidocaine -MPF 2% 2 ML VIAL ONE (12:21)
--- NOTE | 2018-01-30 13:16 | Anesthesia Evaluation Post Op ---
Date of Encounter: 01/30/18 Time of Encounter: 13:15 - Vital Signs Vital Signs: 124/46, HR 81, SpO2 96%, RR 24 - Lungs Lungs: Rhonchi - Airway Airway: Non-obstructed - Cardiovascular Regular Rate - Mental Status Mental Status: Alert & Oriented, Answers Appropriately - Pain Pain Scale: 0 Pain Scale used: Numeric (1 - 10) - Nausea Vomiting Nausea Vomiting: Not Present - Hydration Hydration: NPO, Has not voided - Discharge PostOp Status: Transfer Patient to floor
[2018-01-30] MEDS ORDERED: 0.9 % Sodium Chloride 500 ML ONE (13:27)
[2018-01-30] MEDS: *HR* HYDROcodone/Acet 5/325 mg TABLET PO PRN (14:17)
[2018-01-30] MEDS: tiZANidine 4 MG TABLET PO PRN (14:17)
--- NOTE | 2018-01-30 14:37 | Palliative Progress Note ---
<Rebecca Osman - Last Filed: 01/30/18 15:25> Date of Encounter: 01/30/18 Time of Encounter: 14:00 - Assessment and plan (1) Advance care planning Current Visit: Yes Status: Acute Assessment and plan: Ms. reyes lives alone at home and noted she is able to walk around the house with a cane and can get some of her daily tasks done. We had a discussion about code status and she noted she would like to remain DNI. I explained to her what that meant and she noted she understood and did not want to have chest compressions or be intubated. She signed the DNR/DNI CCA form as well. Awaiting further work up by primary team. She may require some assistance at home or outside facility as she has frequent syncopal episodes. (2) Acute blood loss anemia Current Visit: Yes Status: Acute Assessment and plan: Had an EGD and colonoscopy today and there was no finding of blood loss in the EGD as the esophagus and duodenum were noted to be normal. Her colonoscopy noted a few diverticulosis and a sessile polyp at the rectum. Her hemoglobin this morning was 7.6 and she is currently getting transfusion. Primary team is working up the cause of the anemia. (3) Rhinovirus Current Visit: Yes Status: Acute Assessment and plan: Tested positive for rhinovirus. She is currently on respiratory contact. Currently she is on 2 liters of oxygen and comfortable. (4) Back pain Current Visit: Yes Status: Acute Assessment and plan: She has history of chronic back pain. At home she takes tramadol. Today her back pain has worsened but she had not received her home pain medications since admission. She was comfortable and had not complained of back pain prior to this afternoon. Her pain is reproducible at the left T8 area. She received norco 5 mg and her home tizanidine and is being managed by the primary team. - Time Spent With Patient Total time spent is greater than 50% in coordination of care (as documented) at patient's floor/unit and/or counseling patient: - Subjective Interval history: Ms. Reyes was seen at bedside this afternoon. She was sitting up in bed and co mplaining of back pain. She noted history of chronic back pain which has gotten worse today. She stated at home she usually takes pain medications to relieve it. Today it is rated as a 10/10, located at right T8. She denied any new syncopal episodes since her admission. She has no other complaints and stated she was hungry and wanted food. She denied fever, chills, nausea, emesis, shortness of breath or chest pain. - Constitutional Vitals: Abnormal lab results RBC 2.30 M/mcL (3.82-4.97) L 01/30/18 06:02 Hgb 7.6 g/dL (11.5-15.4) L 01/30/18 06:02 Hct 23.6 % (35.3-44.9) L 01/30/18 06:02 MCV 102.6 fL (83.0-100.0) H 01/30/18 06:02 RDW 14.7 % (11.5-14.5) H 01/30/18 06:02 PT 12.6 Seconds (9.4-12.1) H 01/28/18 09:32 Chloride 113 mEq/L (98-107) H 01/30/18 06:02 BUN 27 mg/dL (8-23) H 01/30/18 06:02 BUN/Creatinine Ratio 32 (6-26) H 01/30/18 06:02 Glucose 127 mg/dL (70-105) H 01/30/18 06:02 POC Glucose 153 mg/dL (70-99) H 01/29/18 17:06 Calculated Osmolality 307 (280-300) H 01/30/18 06:02 Calcium 8.3 mg/dL (8.6-10.3) L 01/30/18 06:02 Phosphorus 2.5 mg/dL (2.7-4.5) L 01/28/18 13:13 Magnesium 1.5 mg/dL (1.6-2.6) L 01/28/18 13:13 TSH 0.294 mcIU/mL (0.340-5.600) L 01/29/18 06:31 Urine Blood Large (Negative) H 01/28/18 10:45 Ur Leukocyte Esterase Trace (Negative) H 01/28/18 10:45 Ur Squamous Epith Cells Many per lpf (None-Few) H 01/28/18 10:45 Ur Culture Indicated? NO. (NO) A 01/28/18 10:45 Stool Occult Bld Scrn Positive (Negative) A 01/28/18 10:07 Entero/Rhino (PCR) DETECTED (Not Detect) A 01/28/18 15:40 - Head Head exam: Present: atraumatic, normocephalic - Eye Eye exam: Present: normal appearance, sclera anicteric. Absent: conjunctival injection - ENT ENT exam: Present: mucous membranes moist - Neck Neck exam: Present: full ROM. Absent: tenderness - Respiratory Respiratory exam: Present: wheezes (lower lung bases) - Cardiovascular Cardiovascular exam: Present: RRR. Absent: clicks, irregular rhythm Additional comments: distant heart sounds likely due to body habitus - GI/Abdominal GI/Abdominal exam: Present: hypoactive bowel sounds, soft. Absent: distended, firm - Extremities Exam Extremities exam: Absent: calf tenderness, pedal edema, tenderness - Neurological Exam Neurological exam: Present: alert, oriented X3 - Psychiatric Psychiatric exam: Present: normal affect, normal mood - Skin Skin exam: Present: dry, intact, warm Palliative Quality Palliative Quality: Screen for Code Status: Yes, Screen for Goals of Care: Yes, Screen for Pain: Yes, If Pain Regimen Started, Initiate Bowel Regimen: NA (bowel prep for scope), Screen for Nausea/Vomitting: Yes Code Status: 01/28/18 12:21 Resuscitation Status: Active [RES] Routine Comment: Resuscitation Status: [id number] - Labs CBC & Chem 7: 01/30/18 06:02 01/30/18 06:02 Labs: Laboratory Results - last 24 hr 01/28/18 01/28/18 01/29/18 09:32 16:28 05:43 WBC RBC Hgb Hct MCV MCH MCHC RDW Plt Count MPV Immature Gran % Seg Neutrophils % Lymphocytes % Monocytes % Eosinophils % Basophils % Neutrophils # Lymphocytes # Monocytes # Eosinophils # Basophils # Sodium Potassium Chloride Carbon Dioxide BUN Creatinine Est GFR ( Amer) Est GFR (Non-Af Amer) BUN/Creatinine Ratio Glucose POC Glucose 173 H 185 H Calculated Osmolality Calcium Blood Type O POSITIVE Antibody Screen NEGATIVE Crossmatch See Detail 01/29/18 01/30/18 01/30/18 17:06 06:02 06:02 WBC 9.1 RBC 2.30 L Hgb 7.6 L Hct 23.6 L MCV 102.6 H MCH 33.0 MCHC 32.2 RDW 14.7 H Plt Count 165 MPV 11.1 Immature Gran % 1.0 Seg Neutrophils % 85.4 Lymphocytes % 9.1 Monocytes % 4.5 Eosinophils % 0.0 Basophils % 0.0 Neutrophils # 7.8 Lymphocytes # 0.8 Monocytes # 0.4 Eosinophils # 0.0 Basophils # 0.0 Sodium 145 Potassium 4.5 Chloride 113 H Carbon Dioxide 26 BUN 27 H Creatinine 0.85 Est GFR ( Amer) > 60 Est GFR (Non-Af Amer) > 60 BUN/Creatinine Ratio 32 H Glucose 127 H POC Glucose 153 H Calculated Osmolality 307 H Calcium 8.3 L Blood Type Antibody Screen Crossmatch - ABG Interpretation ABG results: PT/INR, D-dimer PT 12.6 Seconds (9.4-12.1) H 01/28/18 09:32 Consult Discharge Plan - Plan Referrals: Colin Oden MD [Primary Care Provider] - <Natalya Hastings - Last Filed: 01/31/18 09:39> Date of Encounter: 01/31/18 - Time Spent With Patient Total time spent is greater than 50% in coordination of care (as documented) at patient's floor/unit and/or counseling patient: - Constitutional Vitals: Abnormal lab results RBC 3.02 M/mcL (3.82-4.97) L 01/31/18 03:23 Hgb 9.8 g/dL (11.5-15.4) L D 01/31/18 03:23 Hct 30.0 % (35.3-44.9) L 01/31/18 03:23 RDW 16.7 % (11.5-14.5) H 01/31/18 03:23 PT 12.6 Seconds (9.4-12.1) H 01/28/18 09:32 Chloride 109 mEq/L (98-107) H 01/31/18 03:23 BUN 25 mg/dL (8-23) H 01/31/18 03:23 BUN/Creatinine Ratio 30 (6-26) H 01/31/18 03:23 Glucose 154 mg/dL (70-105) H 01/31/18 03:23 POC Glucose 125 mg/dL (70-99) H 01/30/18 10:59 Calculated Osmolality 301 (280-300) H 01/31/18 03:23 Calcium 8.3 mg/dL (8.6-10.3) L 01/31/18 03:23 Phosphorus 2.5 mg/dL (2.7-4.5) L 01/28/18 13:13 Magnesium 1.5 mg/dL (1.6-2.6) L 01/28/18 13:13 TSH 0.294 mcIU/mL (0.340-5.600) L 01/29/18 06:31 Urine Blood Large (Negative) H 01/28/18 10:45 Ur Leukocyte Esterase Trace (Negative) H 01/28/18 10:45 Ur Squamous Epith Cells Many per lpf (None-Few) H 01/28/18 10:45 Ur Culture Indicated? NO. (NO) A 01/28/18 10:45 Stool Occult Bld Scrn Positive (Negative) A 01/28/18 10:07 Entero/Rhino (PCR) DETECTED (Not Detect) A 01/28/18 15:40 - Attending Attestation I performed a history and physical examination of the patient and discussed his management with the resident. I reviewed the residents note and agree with the documented findings and plan of care, except to the extent that follows. Endoscopy was performed and did not show signs of bleeding. Pt afterwards was complaining of exacerbation of chronic back pain, likely due to positioning during scopes. Pt is on Tramadol at home for pain and did not need any since admission. She was already started on [place], will reassess pain level an medication needs in AM. Will follow. Palliative Quality Code Status: 01/28/18 12:21 Resuscitation Status: Active [RES] Routine Comment: Resuscitation Status: [id number] - Labs CBC & Chem 7: 01/31/18 03:23 01/31/18 03:23 Labs: Laboratory Results - last 24 hr 01/28/18 01/30/18 01/30/18 09:32 02:10 05:48 WBC RBC Hgb Hct MCV MCH MCHC RDW Plt Count MPV Immature Gran % Seg Neutrophils % Lymphocytes % Monocytes % Eosinophils % Basophils % Neutrophils # Lymphocytes # Monocytes # Eosinophils # Basophils # Sodium Potassium Chloride Carbon Dioxide BUN Creatinine Est GFR ( Amer) Est GFR (Non-Af Amer) BUN/Creatinine Ratio Glucose POC Glucose 163 H 152 H Calculated Osmolality Calcium Blood Type O POSITIVE Antibody Screen NEGATIVE Crossmatch See Detail 01/30/18 01/31/18 01/31/18 10:59 03:23 03:23 WBC 8.0 RBC 3.02 L Hgb 9.8 L D Hct 30.0 L MCV 99.3 MCH 32.5 MCHC 32.7 RDW 16.7 H Plt Count 156 MPV 11.1 Immature Gran % 1.6 Seg Neutrophils % 83.9 Lymphocytes % 10.3 Monocytes % 4.1 Eosinophils % 0.0 Basophils % 0.1 Neutrophils # 6.7 Lymphocytes # 0.8 Monocytes # 0.3 Eosinophils # 0.0 Basophils # 0.0 Sodium 142 Potassium 4.3 Chloride 109 H Carbon Dioxide 26 BUN 25 H Creatinine 0.82 Est GFR ( Amer) > 60 Est GFR (Non-Af Amer) > 60 BUN/Creatinine Ratio 30 H Glucose 154 H POC Glucose 125 H Calculated Osmolality 301 H Calcium 8.3 L Blood Type Antibody Screen Crossmatch - ABG Interpretation ABG results: PT/INR, D-dimer PT 12.6 Seconds (9.4-12.1) H 01/28/18 09:32
[2018-01-30] MEDS: Multivit/Ca/Min/Fe/FA 1 TAB TABLET PO SCH (17:16)
[2018-01-30] MEDS ORDERED: 0.9 % Sodium Chloride 250 ML ONE (17:43)
[2018-01-31 03:49] LABS: Basophils % 0.1 %; Immature Granulocytes % 1.6 % (0-4); Lymphocytes # 0.8 K/mcL (0.6-4.6); Lymphocytes % 10.3 %; Mean Corpuscular HGB Conc 32.7 g/dL (31.6-35.5); Mean Corpuscular Hemoglobin 32.5 pg (28.0-33.3); Mean Corpuscular Volume 99.3 fL (83.0-100.0); Mean Platelet Volume 11.1 fL (9.4-12.4); Monocytes # 0.3 K/mcL (0.0-1.3); Monocytes % 4.1 %; Neutrophils # 6.7 K/mcL (1.6-8.9); Platelet Count 156 K/mcL (140-400); Red Blood Count 3.02 M/mcL (3.82-4.97); Red Cell Distribution Width 16.7 % (11.5-14.5); Segmented Neutrophils % 83.9 %
[2018-01-31] MEDS: tiZANidine 4 MG TABLET PO PRN (03:53)
[2018-01-31 04:03] LABS: Hemoglobin 9.8 g/dL (11.5-15.4)
[2018-01-31 04:04] LABS: BUN/Creatinine Ratio 30 (6-26); Blood Urea Nitrogen 25 mg/dL (8-23); Calcium 8.3 mg/dL (8.6-10.3); Carbon Dioxide 26 mEq/L (23-29); Chloride 109 mEq/L (98-107); Glucose 154 mg/dL (70-105); Osmolality,Calculated 301 (280-300); Potassium 4.3 mEq/L (3.5-5.1); Sodium 142 mEq/L (136-145); eGFR For Non-African Americans > 60 (> 60)
[2018-01-31] MEDS: Ipratropium/Albuterol Neb 3 ML IH SCH ×4 (04:30→22:53)
[2018-01-31] MEDS: *HR* HYDROcodone/Acet 5/325 mg TABLET PO PRN ×3 (04:55→22:55)
[2018-01-31] MEDS: MethylPREDNISolone 40 MG/ML VIAL IVP SCH (05:35)
[2018-01-31] MEDS: Nicotine 21 MG PATCH.TD24 TD SCH (08:29)
--- NOTE | 2018-01-31 09:49 | Palliative Progress Note ---
Date of Encounter: 01/31/18 Time of Encounter: 09:30 - Assessment and plan (1) Advance care planning Current Visit: Yes Status: Acute (2) Acute blood loss anemia Current Visit: Yes Status: Acute (3) Rhinovirus Current Visit: Yes Status: Acute (4) Back pain Current Visit: Yes Status: Acute - Time Spent With Patient Total time spent is greater than 50% in coordination of care (as documented) at patient's floor/unit and/or counseling patient: - Subjective Interval history: Ms. Vazquez was seen at bedside this morning. She was laying in bed and was comfortable. She ate her breakfast which consisted of clear liquids. She noted she has chronic back pain rated as 5/10. She describes it as muscle spams and today the pain is about the same as it is at home. She has no other complaints. She denies fever, chills, nausea, emesis, shortness of breath or chest pain. - Constitutional Vitals: Abnormal lab results RBC 3.02 M/mcL (3.82-4.97) L 01/31/18 03:23 Hgb 9.8 g/dL (11.5-15.4) L D 01/31/18 03:23 Hct 30.0 % (35.3-44.9) L 01/31/18 03:23 RDW 16.7 % (11.5-14.5) H 01/31/18 03:23 PT 12.6 Seconds (9.4-12.1) H 01/28/18 09:32 Chloride 109 mEq/L (98-107) H 01/31/18 03:23 BUN 25 mg/dL (8-23) H 01/31/18 03:23 BUN/Creatinine Ratio 30 (6-26) H 01/31/18 03:23 Glucose 154 mg/dL (70-105) H 01/31/18 03:23 POC Glucose 125 mg/dL (70-99) H 01/30/18 10:59 Calculated Osmolality 301 (280-300) H 01/31/18 03:23 Calcium 8.3 mg/dL (8.6-10.3) L 01/31/18 03:23 Phosphorus 2.5 mg/dL (2.7-4.5) L 01/28/18 13:13 Magnesium 1.5 mg/dL (1.6-2.6) L 01/28/18 13:13 TSH 0.294 mcIU/mL (0.340-5.600) L 01/29/18 06:31 Urine Blood Large (Negative) H 01/28/18 10:45 Ur Leukocyte Esterase Trace (Negative) H 01/28/18 10:45 Ur Squamous Epith Cells Many per lpf (None-Few) H 01/28/18 10:45 Ur Culture Indicated? NO. (NO) A 01/28/18 10:45 Stool Occult Bld Scrn Positive (Negative) A 01/28/18 10:07 Entero/Rhino (PCR) DETECTED (Not Detect) A 01/28/18 15:40 - Head Head exam: Present: atraumatic, normocephalic - Eye Eye exam: Present: EOMI, normal appearance, sclera anicteric. Absent: conjunctival injection - ENT ENT exam: Present: mucous membranes moist - Neck Neck exam: Present: normal inspection - Respiratory Respiratory exam: Present: wheezes. Absent: rales, rhonchi, stridor Additional comments: diffuse wheezing at all lung lobes - Cardiovascular Cardiovascular exam: Present: RRR, +S1, +S2. Absent: clicks - GI/Abdominal GI/Abdominal exam: Present: normal bowel sounds, soft. Absent: distended, guarding, rigid Palliative Quality Palliative Quality: Screen for Code Status: Yes, Screen for Goals of Care: Yes, Screen for Pain: Yes, If Pain Regimen Started, Initiate Bowel Regimen: NA (bowel prep for scope), Screen for Nausea/Vomitting: Yes Code Status: 01/28/18 12:21 Resuscitation Status: Active [RES] Routine Comment: Resuscitation Status: [id number] - Labs CBC & Chem 7: 01/31/18 03:23 01/31/18 03:23 Labs: Laboratory Results - last 24 hr 01/28/18 01/30/18 01/30/18 09:32 02:10 05:48 WBC RBC Hgb Hct MCV MCH MCHC RDW Plt Count MPV Immature Gran % Seg Neutrophils % Lymphocytes % Monocytes % Eosinophils % Basophils % Neutrophils # Lymphocytes # Monocytes # Eosinophils # Basophils # Sodium Potassium Chloride Carbon Dioxide BUN Creatinine Est GFR ( Amer) Est GFR (Non-Af Amer) BUN/Creatinine Ratio Glucose POC Glucose 163 H 152 H Calculated Osmolality Calcium Blood Type O POSITIVE Antibody Screen NEGATIVE Crossmatch See Detail 01/30/18 01/31/18 01/31/18 10:59 03:23 03:23 WBC 8.0 RBC 3.02 L Hgb 9.8 L D Hct 30.0 L MCV 99.3 MCH 32.5 MCHC 32.7 RDW 16.7 H Plt Count 156 MPV 11.1 Immature Gran % 1.6 Seg Neutrophils % 83.9 Lymphocytes % 10.3 Monocytes % 4.1 Eosinophils % 0.0 Basophils % 0.1 Neutrophils # 6.7 Lymphocytes # 0.8 Monocytes # 0.3 Eosinophils # 0.0 Basophils # 0.0 Sodium 142 Potassium 4.3 Chloride 109 H Carbon Dioxide 26 BUN 25 H Creatinine 0.82 Est GFR ( Amer) > 60 Est GFR (Non-Af Amer) > 60 BUN/Creatinine Ratio 30 H Glucose 154 H POC Glucose 125 H Calculated Osmolality 301 H Calcium 8.3 L Blood Type Antibody Screen Crossmatch - ABG Interpretation ABG results: PT/INR, D-dimer PT 12.6 Seconds (9.4-12.1) H 01/28/18 09:32 Consult Discharge Plan - Plan Referrals: Colin Oden MD [Primary Care Provider] -
--- NOTE | 2018-01-31 10:01 | Event Note ---
<Rebecca Osman - Last Filed: 01/31/18 09:52> Date of Encounter: 01/31/18 Time of Encounter: 09:30 Ms. Vazquez was seen at bedside this morning. She was laying in bed and was comfortable. She ate her breakfast which consisted of clear liquids. She noted she has chronic back pain rated as 5/10. She describes it as muscle spams and today the pain is about the same as it is at home. She has no other complaints. She denies fever, chills, nausea, emesis, shortness of breath or chest pain. Her pain is much better today and has no new changes. Her goals of care are clear. Her hemoglobin is stable today at 9.6 and received 2 units of blood transfusion yesterday. Thank you for involving the Palliative team in the care of Ms. Vazquez. Due to no further needs we will be signing off. <Natalya Hastings - Last Filed: 01/31/18 13:07> Date of Encounter: 01/31/18 I discussed the plan with resident Dr. Osman and agree with plan as formulated.
[2018-01-31 11:54] LABS: Triiodothyronine (T3) Free 2.26 pg/mL (2.50-3.90)
[2018-01-31] MEDS ORDERED: Levofloxacin 750 MG/150 ML 750 MG/150 ML BAG IVPB SCH (12:00)
--- NOTE | 2018-01-31 12:01 | Internal Med Progress Note ---
Hospitalist Progress Note - Encounter Date of Encounter: 01/31/18 Time of Encounter: 12:01 - Subjective Interval History: Patient underwent EGD and colonoscopy yesterday. Tolerated without issue. Currently denies fevers/chills, melena, hematochezia, hematemesis. States not fatigued. Has not ambulated since admission. - Exam Vitals: Temp Pulse Resp BP Pulse Ox 98.3 F 91 16 130/70 92 01/31/18 06:55 01/31/18 06:55 01/31/18 10:10 01/31/18 06:55 01/31/18 10:10 Exam: General: NAD, resting comfortably. Head: NC/AT Eye: normal appearance, PERRL, no scleral icterus, no conjunctival injection ENT: mucous membranes moist, normal external ear exam Neck: normal inspection, trachea midline, full ROM, no carotid bruits Respiratory: CTAB Cardiovascular: Distant heart sounds secondary to body habitus, tachycardic s1 and s2 No clicks, rubs, gallops, or murmors. Abdomen: soft, NT/ND Skin: warm, dry, intact. Left lower extremity has dark discoloration below kne echronic Neuro: Cranial nerves 2-12 is intact. No focal deficit - Assessment and Plan (1) GI bleed Current Visit: Yes Status: Acute Assessment and Plan: Multiple episodes of melena FOBT in the ED positive Was placed on Protonix drip on admission. Now on oral PPI Avoid antiplatelets, anticoagulations or NSAIDs s/p 2 units PRBC 01/30/18. EGD: normal Colonoscopy: diverticulosis, polyp Continue Prilosec daily Monitor H&H Hemodynamically stable. (2) Syncope and collapse Current Visit: Yes Status: Acute Assessment and Plan: Pt hypotensive on admission. Will check orthostatic vitals if not already done Possibly due to acute anemia. HGB on admision was 10.9, Hgb was as low as 7.6 yesterday, she required 2 units PRBC, goal hemoglobin is >8.0 as she is a cardiac patient. recheck H&H in AM. (3) Acute exacerbation of chronic obstructive pulmonary disease (COPD) Current Visit: Yes Status: Acute Assessment and Plan: IV Levaquinwatch for QT prolongation Urine antigens, respiratory viral panel, sputum cultures BiPAP Keep O2 saturations above 90 Continuous pulse ox Continue Prednisone. PFT on 06/27/17 Spirometry shows moderate airway obstructive pattern Following Bronchodilator, there is significant improvement in FVC by 14%. MVV is decreased. Lung Volumes are normal. Flow Volume Loop: Obstructive (4) Acute and chronic respiratory failure with hypoxia Current Visit: Yes Status: Acute Assessment and Plan: Secondary to above Ruled out pulmonary embolism in the ED Management as per above CTA: IMPRESSION: No acute pulmonary embolus is appreciated. 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 The lungs demonstrate bronchial wall thickening and mucous plugging. (5) Acute blood loss anemia Current Visit: Yes Status: Acute Assessment and Plan: Secondary to GI bleed See assessment and plan above. (6) Smoker Current Visit: Yes Status: Acute Assessment and Plan: Was counseled on cessation Nicotine patch DVT Prophylaxis: SCDs - Time Spent with Patient Total time spent is greater than 50% in coordination of care (as documented) at patient's floor/unit and/or counseling patient: Internal Medicine: Result - Labs CBC & Chem 7: 01/31/18 03:23 01/31/18 03:23 Labs: Short CBC 01/31/18 Range/Units 03:23 WBC 8.0 (4.3-11.1) K/mcL Hgb 9.8 L D (11.5-15.4) g/dL Hct 30.0 L (35.3-44.9) % Plt Count 156 (140-400) K/mcL Neutrophils # 6.7 (1.6-8.9) K/mcL BMP 01/31/18 03:23 Sodium 142 Potassium 4.3 Chloride 109 H Carbon Dioxide 26 BUN 25 H Creatinine 0.82 Glucose 154 H Calcium 8.3 L - ABG Interpretation ABG results: PT/INR, D-dimer PT 12.6 Seconds (9.4-12.1) H 01/28/18 09:32 Consult Discharge Plan - Plan Referrals: Skylar Oden MD [Non-Partnered Physician] - 02/07/18 11:00 am (1) GI bleed Qualifiers: GI bleed type/associated pathology: sherrie Qualified Code(s): K92.1 - hSerrie
[2018-01-31] MEDS: Multivit/Ca/Min/Fe/FA 1 TAB TABLET PO SCH (16:48)
--- NOTE | 2018-01-31 16:52 | Event Note ---
<Rylan Hameed - Last Filed: 01/31/18 16:47> Date of Encounter: 01/31/18 Time of Encounter: 09:00 Ms. Vazquez is s/p colonoscopy (01/30) for suspected GI bleed. Her scope showed diverticulosis in the sigmoid colon and a sessile rectal polyp that was removed and sent for pathology. She is doing well this morning with no complaints. I instructed the patient to increase fiber in her diet. We recommend the use of stool softeners to prevent constipation. Surgery will sign off at this time, thank you for the consult. <Sujit Streeter - Last Filed: 01/31/18 17:15> Date of Encounter: 01/31/18 Surgery will sign off at this time Sujit Streeter MD FACS
[2018-02-01] MEDS: Ipratropium/Albuterol Neb 3 ML IH SCH ×4 (04:15→20:46)
[2018-02-01 05:19] LABS: Basophils % 0.2 %; Hematocrit 29.9 % (35.3-44.9); Hemoglobin 9.9 g/dL (11.5-15.4); Immature Granulocytes % 1.5 % (0-4); Lymphocytes # 2.3 K/mcL (0.6-4.6); Lymphocytes % 23.1 %; Mean Corpuscular HGB Conc 33.1 g/dL (31.6-35.5); Mean Corpuscular Hemoglobin 32.9 pg (28.0-33.3); Mean Corpuscular Volume 99.3 fL (83.0-100.0); Mean Platelet Volume 11.1 fL (9.4-12.4); Monocytes # 0.8 K/mcL (0.0-1.3); Monocytes % 8.5 %; Neutrophils # 6.5 K/mcL (1.6-8.9); Nucleated Red Blood Cells 0.2 /100 WBC (0); Platelet Count 146 K/mcL (140-400); Red Blood Count 3.01 M/mcL (3.82-4.97); Red Cell Distribution Width 16.3 % (11.5-14.5); Segmented Neutrophils % 66.7 %
[2018-02-01 05:35] LABS: BUN/Creatinine Ratio 25 (6-26); Blood Urea Nitrogen 24 mg/dL (8-23); Calcium 8.7 mg/dL (8.6-10.3); Carbon Dioxide 28 mEq/L (23-29); Chloride 109 mEq/L (98-107); Glucose 101 mg/dL (70-105); Osmolality,Calculated 298 (280-300); Potassium 4.3 mEq/L (3.5-5.1); Sodium 142 mEq/L (136-145); eGFR For Non-African Americans 55 (> 60)
[2018-02-01] MEDS: *HR* HYDROcodone/Acet 5/325 mg TABLET PO PRN ×2 (06:05→22:50)
[2018-02-01] MEDS ORDERED: predniSONE 20 MG TABLET PO SCH (09:00)
[2018-02-01] MEDS: Nicotine 21 MG PATCH.TD24 TD SCH (10:18)
--- NOTE | 2018-02-01 13:16 | Internal Med Progress Note ---
Hospitalist Progress Note - Encounter Date of Encounter: 02/01/18 Time of Encounter: 14:16 - Subjective Interval History: Patient still SOB. She denies melena, hematochezia, hematemesis, chest pain. Still SOB with slight exertion. - Exam Vitals: Temp Pulse Resp BP Pulse Ox 98.3 F 77 16 120/73 93 02/01/18 10:55 02/01/18 10:55 02/01/18 11:24 02/01/18 10:55 02/01/18 11:24 Exam: General: NAD, resting comfortably. Head: NC/AT Eye: normal appearance, PERRL, no scleral icterus, no conjunctival injection ENT: mucous membranes moist, normal external ear exam Neck: normal inspection, trachea midline, full ROM, no carotid bruits Respiratory: CTAB Cardiovascular: Distant heart sounds secondary to body habitus, tachycardic s1 and s2 No clicks, rubs, gallops, or murmors. Abdomen: soft, NT/ND Skin: warm, dry, intact. Left lower extremity has dark discoloration below kneechronic Neuro: Cranial nerves 2-12 is intact. No focal deficit - Assessment and Plan (1) Acute exacerbation of chronic obstructive pulmonary disease (COPD) Current Visit: Yes Status: Acute Assessment and Plan: IV Levaquinwatch for QT prolongation Urine antigens, respiratory viral panel, sputum cultures BiPAP Keep O2 saturations above 90 Continuous pulse ox PFT on 06/27/17 CTA chest findings show mucus plugging and bronchial wall thickening Spirometry shows moderate airway obstructive pattern Following Bronchodilator, there is significant improvement in FVC by 14%. MVV is decreased. Lung Volumes are normal. Flow Volume Loop: Obstructive Taper steroids Continue Duo nebs Start Doxycyline Mucinex (2) GI bleed Current Visit: Yes Status: Acute Assessment and Plan: Multiple episodes of melena FOBT in the ED positive Was placed on Protonix drip on admission. Now on oral PPI Avoid antiplatelets, anticoagulations or NSAIDs s/p 2 units PRBC 01/30/18. EGD: normal Colonoscopy: diverticulosis, polyp Continue Prilosec daily H&H stable, s/p 2 units PRBC 01/30 Hemodynamically stable. - Still having significant wheezing - increase activity as tolerated - Duo Nebs (3) Syncope and collapse Current Visit: Yes Status: Acute Assessment and Plan: Pt hypotensive on admission. Likely due to acute blood loss anemia. HGB on admision was 10.9, Hgb was as low as 7.6 yesterday, she required 2 units PRBC, goal hemoglobin is >8.0 as she is a cardiac patient. H&H now stable. (4) Acute and chronic respiratory failure with hypoxia Current Visit: Yes Status: Acute Assessment and Plan: Secondary to above Ruled out pulmonary embolism in the ED Management as per above CTA: IMPRESSION: No acute pulmonary embolus is appreciated. 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 The lungs demonstrate bronchial wall thickening and mucous plugging. (5) Acute blood loss anemia Current Visit: Yes Status: Acute Assessment and Plan: Secondary to GI bleed See assessment and plan above. (6) Smoker Current Visit: Yes Status: Acute Assessment and Plan: Was counseled on cessation Nicotine patch DVT Prophylaxis: EPCD - Time Spent with Patient Total time spent is greater than 50% in coordination of care (as documented) at patient's floor/unit and/or counseling patient: Internal Medicine: Result - Labs CBC & Chem 7: 02/01/18 13:19 02/01/18 05:00 Labs: Short CBC 02/01/18 Range/Units 05:00 WBC 9.8 (4.3-11.1) K/mcL Hgb 9.9 L (11.5-15.4) g/dL Hct 29.9 L (35.3-44.9) % Plt Count 146 (140-400) K/mcL Neutrophils # 6.5 (1.6-8.9) K/mcL BMP 02/01/18 05:00 Sodium 142 Potassium 4.3 Chloride 109 H Carbon Dioxide 28 BUN 24 H Creatinine 0.97 Glucose 101 Calcium 8.7 - ABG Interpretation ABG results: PT/INR, D-dimer PT 12.6 Seconds (9.4-12.1) H 01/28/18 09:32 Consult Discharge Plan - Plan Referrals: Skylar Oden MD [Non-Partnered Physician] - 02/07/18 11:00 am (2) GI bleed Qualifiers: GI bleed type/associated pathology: sherrie Qualified Code(s): K92.1 - Sherrie
[2018-02-01 13:28] LABS: Hematocrit 34.1 % (35.3-44.9); Hemoglobin 10.9 g/dL (11.5-15.4)
[2018-02-01] MEDS ORDERED: Doxycycline 100 MG in 0.9 % Sodium Chloride Mini Bag 100 ML IVPB ONE (15:00)
[2018-02-01] MEDS: Multivit/Ca/Min/Fe/FA 1 TAB TABLET PO SCH (17:06)
[2018-02-01] MEDS: Doxycycline 100 MG CAPSULE PO SCH ×2 (17:06→22:51)
[2018-02-01] MEDS ORDERED: Doxycycline 100 MG in 0.9 % Sodium Chloride Mini Bag 100 ML IVPB SCH (23:00)
[2018-02-02] MEDS: Ipratropium/Albuterol Neb 3 ML IH SCH ×7 (00:11→23:36)
[2018-02-02 04:45] LABS: Basophils % 0.2 %; Eosinophils % 0.1 %; Hematocrit 29.8 % (35.3-44.9); Hemoglobin 9.7 g/dL (11.5-15.4); Lymphocytes # 1.4 K/mcL (0.6-4.6); Lymphocytes % 16.2 %; Mean Corpuscular HGB Conc 32.6 g/dL (31.6-35.5); Mean Corpuscular Volume 98.3 fL (83.0-100.0); Mean Platelet Volume 11.4 fL (9.4-12.4); Monocytes # 0.7 K/mcL (0.0-1.3); Monocytes % 7.4 %; Neutrophils # 6.6 K/mcL (1.6-8.9); Nucleated Red Blood Cells 0.2 /100 WBC (0); Platelet Count 156 K/mcL (140-400); Red Blood Count 3.03 M/mcL (3.82-4.97); Red Cell Distribution Width 15.8 % (11.5-14.5); Segmented Neutrophils % 74.1 %
[2018-02-02 05:01] LABS: BUN/Creatinine Ratio 29 (6-26); Blood Urea Nitrogen 23 mg/dL (8-23); Calcium 8.7 mg/dL (8.6-10.3); Carbon Dioxide 31 mEq/L (23-29); Chloride 106 mEq/L (98-107); Glucose 111 mg/dL (70-105); Osmolality,Calculated 296 (280-300); Potassium 4.1 mEq/L (3.5-5.1); Sodium 141 mEq/L (136-145); eGFR For Non-African Americans > 60 (> 60)
[2018-02-02] MEDS: Pantoprazole 40 MG in 0.9 % Sodium Chloride Mini Bag 100 ML IVC SCH (08:02)
[2018-02-02] MEDS: Doxycycline 100 MG CAPSULE PO SCH ×2 (09:02→21:36)
[2018-02-02] MEDS: predniSONE 20 MG TABLET PO SCH (09:02)
[2018-02-02] MEDS: Nicotine 21 MG PATCH.TD24 TD SCH (09:02)
[2018-02-02] MEDS ORDERED: Furosemide 20 MG/2 ML VIAL IVP ONE (12:45)
--- NOTE | 2018-02-02 12:45 | Internal Med Progress Note ---
Hospitalist Progress Note - Encounter Date of Encounter: 02/02/18 Time of Encounter: 11:00 - Subjective Interval History: She denies melena, hematochezia, hematemesis, chest pain. There is improving SOB. - Exam Vitals: Temp Pulse Resp BP Pulse Ox 98.8 F 75 15 139/77 97 02/02/18 10:36 02/02/18 10:36 02/02/18 11:22 02/02/18 10:36 02/02/18 11:22 Exam: General: NAD, resting comfortably. Head: NC/AT Eye: normal appearance, PERRL, no scleral icterus, no conjunctival injection ENT: mucous membranes moist, normal external ear exam Neck: normal inspection, trachea midline, full ROM, no carotid bruits Respiratory: CTAB Cardiovascular: Distant heart sounds secondary to body habitus, tachycardic s1 and s2 No clicks, rubs, gallops, or murmors. Abdomen: soft, NT/ND Skin: warm, dry, intact. Left lower extremity has dark discoloration below kneechronic Neuro: Cranial nerves 2-12 is intact. No focal deficit - Assessment and Plan (1) Acute exacerbation of chronic obstructive pulmonary disease (COPD) Current Visit: Yes Status: Acute Assessment and Plan: BiPAP Keep O2 saturations above 90 Continuous pulse ox PFT on 06/27/17 CTA chest findings show mucus plugging and bronchial wall thickening Taper steroids Continue Duo nebs Continue Doxycyline Mucinex 02/02: X-ray shows pulmonary edema, will start diuresis. (2) GI bleed Current Visit: Yes Status: Acute Assessment and Plan: Multiple episodes of melena FOBT in the ED positive Was placed on Protonix drip on admission. Now on oral PPI Avoid antiplatelets, anticoagulations or NSAIDs EGD: normal Colonoscopy: diverticulosis, polyp Continue Prilosec daily H&H stable, s/p 2 units PRBC 01/30 Hemodynamically stable. (3) Syncope and collapse Current Visit: Yes Status: Acute Assessment and Plan: Pt hypotensive on admission. Likely due to acute blood loss anemia. HGB on admision was 10.9, Hgb was as low as 7.6 yesterday, she required 2 units PRBC, goal hemoglobin is >8.0 as she is a cardiac patient. H&H now stable. (4) Acute and chronic respiratory failure with hypoxia Current Visit: Yes Status: Acute Assessment and Plan: Secondary to above Ruled out pulmonary embolism in the ED Management as per above CTA: IMPRESSION: No acute pulmonary embolus is appreciated. 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 The lungs demonstrate bronchial wall thickening and mucous plugging. (5) Acute blood loss anemia Current Visit: Yes Status: Acute Assessment and Plan: Secondary to GI bleed See assessment and plan above. (6) Smoker Current Visit: Yes Status: Acute Assessment and Plan: Was counseled on cessation Nicotine patch DVT Prophylaxis: EPCD - Summary of Assessment and Plan Summary of Assessment and Plan: History of present illness: Dr. Sheppard Ms. Vazquez is a 82 year old female with history of COPD not on home oxygen and hypertension presented to the emergency department after a syncopal episode. Per patient she was at her usual state of health but woke up in the middle of t he night and use the bathroom and noticed that her stools are black which is something new for her. Blocked from the bathroom to her bedroom however she lost consciousness. She broke up on the ground and crawled down the hallway into her recliner and fell asleep. She cannot recall if she had any head trauma, denies chest pain, palpitations, diaphoresis, vision changes prior to the episode. She never had any symptoms similar to above previously. Denies history of CAD, blood clots or pulmonary embolism in the past. She is currently not on any anticoagulations however she does take aspirin 81 mg for many years. In addition to above she also complains of shortness of breath that started abo ut 5 days ago and is associated with productive cough with minimal white sputum, denies hemoptysis. She has had COPD for many years and is a current every day smoker however she was never prescribed home oxygen nor CPAP. She reports she is compliant with her inhalers and has been using her rescue inhaler more often in the past 5 days without any relief. She is up-to-date with her vaccinations. Denies recent travel or sick contacts. I discussed CODE STATUS with the patient and she wishes to be DNR CCA DNI. she denies fever chills, N/V/D, hematochezia, hematemesis, leg swelling, calf tenderness. - Time Spent with Patient Total time spent is greater than 50% in coordination of care (as documented) at patient's floor/unit and/or counseling patient: Internal Medicine: Result - Labs CBC & Chem 7: 02/02/18 04:02 02/02/18 04:02 Labs: Short CBC 02/01/18 02/02/18 Range/Units 13:19 04:02 WBC 8.9 (4.3-11.1) K/mcL Hgb 10.9 L 9.7 L (11.5-15.4) g/dL Hct 34.1 L 29.8 L (35.3-44.9) % Plt Count 156 (140-400) K/mcL Neutrophils # 6.6 (1.6-8.9) K/mcL BMP 02/02/18 04:02 Sodium 141 Potassium 4.1 Chloride 106 Carbon Dioxide 31 H BUN 23 Creatinine 0.79 Glucose 111 H Calcium 8.7 - ABG Interpretation ABG results: PT/INR, D-dimer PT 12.6 Seconds (9.4-12.1) H 01/28/18 09:32 - Impressions Impressions Chest X-Ray 02/02/18 10:32 IMPRESSION: Findings suggest congestive heart failure D/ / August Reese MD / August Reese MD Interpreting Provider: August Reese MD Consult Discharge Plan - Plan Referrals: Skylar Oden MD [Non-Partnered Physician] - 02/07/18 11:00 am (2) GI bleed Qualifiers: GI bleed type/associated pathology: melena Qualified Code(s): K92.1 - Melena
[2018-02-02] MEDS: Furosemide 40 MG TABLET PO SCH ×2 (15:46→18:23)
[2018-02-02] MEDS: Multivit/Ca/Min/Fe/FA 1 TAB TABLET PO SCH (18:23)
[2018-02-02] MEDS ORDERED: Furosemide 20 MG/2 ML VIAL IVP SCH (21:00)
[2018-02-02] MEDS: *HR* HYDROcodone/Acet 5/325 mg TABLET PO PRN (21:39)
[2018-02-03 04:03] LABS: Basophils # 0.1 K/mcL (0.0-0.2); Basophils % 0.5 %; Eosinophils # 0.1 K/mcL (0.0-0.6); Eosinophils % 0.5 %; Hematocrit 31.3 % (35.3-44.9); Hemoglobin 10.5 g/dL (11.5-15.4); Immature Granulocytes % 2.7 % (0-4); Lymphocytes # 2.1 K/mcL (0.6-4.6); Lymphocytes % 20.4 %; Mean Corpuscular HGB Conc 33.5 g/dL (31.6-35.5); Mean Corpuscular Hemoglobin 32.5 pg (28.0-33.3); Mean Corpuscular Volume 96.9 fL (83.0-100.0); Mean Platelet Volume 11.3 fL (9.4-12.4); Monocytes # 0.8 K/mcL (0.0-1.3); Monocytes % 7.5 %; Neutrophils # 7.1 K/mcL (1.6-8.9); Nucleated Red Blood Cells 0.4 /100 WBC (0); Platelet Count 175 K/mcL (140-400); Red Blood Count 3.23 M/mcL (3.82-4.97); Red Cell Distribution Width 15.4 % (11.5-14.5); Segmented Neutrophils % 68.4 %
[2018-02-03] MEDS: Ipratropium/Albuterol Neb 3 ML IH SCH ×3 (04:12→11:11)
[2018-02-03 04:22] LABS: BUN/Creatinine Ratio 28 (6-26); Blood Urea Nitrogen 27 mg/dL (8-23); Calcium 8.8 mg/dL (8.6-10.3); Carbon Dioxide 33 mEq/L (23-29); Chloride 102 mEq/L (98-107); Glucose 109 mg/dL (70-105); Osmolality,Calculated 300 (280-300); Potassium 3.5 mEq/L (3.5-5.1); Sodium 142 mEq/L (136-145); eGFR For Non-African Americans 55 (> 60)
[2018-02-03] MEDS: Furosemide 40 MG TABLET PO SCH (09:01)
[2018-02-03] MEDS: Doxycycline 100 MG CAPSULE PO SCH (09:01)
[2018-02-03] MEDS: predniSONE 20 MG TABLET PO SCH (09:02)
[2018-02-03] MEDS: Nicotine 21 MG PATCH.TD24 TD SCH (09:02)
[2018-02-03 10:34] VITALS: BP 119/85
--- NOTE | 2018-02-03 12:12 | Discharge Summary ---
- NOTES TO OUTPATIENT PROVIDER Notes to Outpatient Provider: Follow-up respiratory status. She states currently she is breathing better than her normal baseline. Repeat BMP in one week. Orders not resulted at time of discharge: Pending orders 01/28/18 12:28 Culture,Sputum with Gram Stain [RM] Stat 02/04/18 04:00 BMP [Basic Metabolic Panel] AM 0400 Complete Blood Count [HEME] AM 0400 02/05/18 04:00 BMP [Basic Metabolic Panel] AM 0400 Complete Blood Count [HEME] AM 0400 02/06/18 04:00 BMP [Basic Metabolic Panel] AM 0400 Complete Blood Count [HEME] AM 0400 02/07/18 04:00 BMP [Basic Metabolic Panel] AM 0400 Complete Blood Count [HEME] AM 0400 02/08/18 04:00 BMP [Basic Metabolic Panel] AM 0400 Complete Blood Count [HEME] AM 0400 02/09/18 04:00 BMP [Basic Metabolic Panel] AM 0400 Complete Blood Count [HEME] AM 0400 Date of Encounter: 02/03/18 Time of Encounter: 12:33 - Discharge Diagnosis (1) Acute exacerbation of chronic obstructive pulmonary disease (COPD) Priority: Primary Status: Acute (2) Acute and chronic respiratory failure with hypoxia Priority: Secondary Status: Acute (3) GI bleed Priority: Secondary Status: Acute Qualifiers: GI bleed type/associated pathology: melena Qualified Code(s): K92.1 - Melena (4) Syncope and collapse Priority: Secondary Status: Acute (5) Acute blood loss anemia Priority: Secondary Status: Acute (6) Smoker Priority: Secondary Status: Acute Hospital course: Ms. Vazquez is a 82 year old female with history of COPD not on home oxygen and hypertension presented to the emergency department after a syncopal episode. Per patient she was at her usual state of health but woke up in the middle of the night and use the bathroom and noticed that her stools are black which is something new for her. Blocked from the bathroom to her bedroom however she lost consciousness. She broke up on the ground and crawled down the hallway into her recliner and fell asleep. She cannot recall if she had any head trauma, denies chest pain, palpitations, diaphoresis, vision changes prior to the episode. She never had any symptoms similar to above previously. Denies history of CAD, blood clots or pulmonary embolism in the past. She is currently not on any anticoagulations however she does take aspirin 81 mg for many years. In addition to above she also complains of shortness of breath that started about 5 days ago and is associated with productive cough with minimal white sputum, denies hemoptysis. She has had COPD for many years and is a current every day smoker however she was never prescribed home oxygen nor CPAP. She reports she is compliant with her inhalers and has been using her rescue inhaler more often in the past 5 days without any relief. She is up-to-date with her vaccinations. Denies recent travel or sick contacts. In the ED, EKG showed sinus rhythm, CTA was negative for PE, CT head without contrast was negative. She was wheezing on physical exam. She was admitted for further treatment and workup of syncope, GI bleed, and COPD exacerbation. She was started on protonix drip and Surgery was consulted for evaluation. FOBT was positive in ED. She had hemoglobin on admission of 10.9 that did drop to 7.6 over period of days and she required 2 units PRBCs. She was started on emperic antibiotic therapy and steroids. She had an EGD that was unremarkable and a colonoscopy showed diverticulosis. She was stable after monitoring and Surgery signed off. Patient remained hemodynamically stable. Her respiratory status improved. A repeat chest x-ray showed pulmonary edema and she was treated with Lasix while being treated with COPD. Respiratory status improved significantly. She was discharged home to complete a steroid taper, Lasix course, Doxy, Mucinex, oral PPI. - Time Spent with Patient Total time spent providing and/or coordinating discharge services: - Discharge Medications Prescriptions: Doxycycline 100 mg PO BID #6 capsule GuaiFENesin ER [Mucinex] 1,200 mg PO BID #10 tbbp.12hr Nicotine Patch [Nicoderm] 21 mg TD DAILY #30 patch.td24 Omeprazole [PriLOSEC] 20 mg PO DAILY@0630 #28 capsule.dr Home Medications: Multivitamin/Iron/Folic Acid [Centrum Complete Multivit Tab] 1 each PO QPM 12/10/14 [History] Aspirin 81 mg PO QAM tab.chew 12/11/14 [Rx] Allopurinol [Zyloprim 300 MG] 300 mg PO DAILY 01/28/18 [History] Lisinopril [Zestril] 20 mg PO DAILY 01/28/18 [History] Montelukast [Singulair] 10 mg PO DAILY 01/28/18 [History] Tizanidine HCl 2 mg PO BID PRN 01/28/18 [History] Tramadol HCl [Ultram] 50 mg PO BID PRN 01/28/18 [History] Umeclidinium [place] [Incruse Ellipta] 1 puff IH DAILY 01/28/18 [History] Doxycycline 100 mg PO BID #6 capsule 02/03/18 [Rx] Furosemide [Lasix] 20 mg PO BID #10 tablet 02/03/18 [Rx] GuaiFENesin ER [Mucinex] 1,200 mg PO BID #10 tbbp.12hr 02/03/18 [Rx] Nicotine Patch [Nicoderm] 21 mg TD DAILY #30 patch.td24 02/03/18 [Rx] Omeprazole [PriLOSEC] 20 mg PO DAILY@0630 #28 capsule.dr 02/03/18 [Rx] Sennosides/Docusate Sodium [Senna Plus] 1 each PO DAILY #10 tablet 02/03/18 [Rx] predniSONE [PredniSONE] 10 mg PO DAILY #11 tablet 02/03/18 [Rx] Allergies/Adverse Reactions: Allergy/AdvReac Type Severity Reaction Status Date / Time ibuprofen [From Motrin] Allergy Rash Verified 01/28/18 08:40 Penicillins Allergy Rash Verified 01/28/18 08:40 Date of admission: 01/30/18 17:55 Primary care physician: Colin Oden MD Consults: 01/28/18 10:43 Consult to Surgery [CONS] Stat Consulting Provider: Surgery [facility] Reason for Consult: GI bleed Time Notified: 10:43 Call Completed: Yes 01/28/18 12:21 Consult to Nurse Navigator [CONS] Routine Comment: 01/28/18 19:25 Consult to Palliative Care [CONS] Routine Comment: Consulting Provider: Palliative Care [facility] Reason for Consult: DNRCCADNI needs recommendations for comfort care Call Completed: No 01/31/18 12:09 Consult to Physical Therapy [CONS] Routine Comment: Evaluate, develop and implement POC Reason for Consult: weakness Does patient have active BEDREST order?: No Is patient medically & hemodynamically stable?: Yes Discharging clinician: Trinity Condon - Constitutional Vitals: Temp Pulse Resp BP Pulse Ox 98.1 F 82 16 119/85 96 02/03/18 10:29 02/03/18 10:29 02/03/18 11:11 02/03/18 10:29 02/03/18 11:11 Exam: Gen: NAD CVS: RRR Lungs: end exp wheezing present but improved. No rales/ronchi Abd: soft, NT/ND Ext: trace bipedal edema - Patient Status Disposition: Home, Self-Care Condition: Fair Functional capacity at discharge: independent ambulation Overall status at discharge: patient is back to baseline - Discharge Instructions Follow Up With: Skylar Oden MD [Non-Partnered Physician] - 02/07/18 11:00 am - Diet and Activity Activity: increase activity as tolerated Diet: advance to your usual diet
== END 2018-02-03 14:45 | disposition home or self-care (01) | DRG 377 ==
LOC: 3ANU 08:28 → EMEROOARM 08:28 → SUATTDRO 12:15 → 3ANU 14:10
PROVIDERS: ADMIT Internal Medicine; ATTEND Student in an Organized Health Care Education/Training Program